=== PATIENT | male | born 1930 | race Caucasian/White ===

== ENCOUNTER 2019-06-09 11:31 | Inpatient (IN) | payer BC ==
[~2019-06-09] VITALS: Ht 180.3 cm; Wt 65.3 kg
--- NOTE | 2019-06-09 11:34 | NUR ---
PT BIBRA FROM HOME C/O GENERALIZE BODY PAIN, PT IS AAOX2, NOT IN RESPIRATORY DISTRESS, HOOKED TO PODIATRIST ASSISTANT, KEPT RESTED AND COMFORTABLE, WILL CONTINUE TO MONITOR.
--- NOTE | 2019-06-09 11:50 | NUR ---
SEEN AND EXAMINED BY .
--- NOTE | 2019-06-09 11:55 | NUR ---
IV LINE ESTABLISHED, BLOOD DRAWN AND SENT TO LAB.
[2019-06-09] MEDS ORDERED: IV NS 0.9% 1,000 ML BAG IV ONE (12:00)
[2019-06-09 12:04] LABS: BASOPHILS # (AUTO) 0.1 /CMM (0.0-0.2); BASOPHILS % (AUTO) 0.4 % (0.0-2.0); EOSINOPHILS % (AUTO) 0.1 % (0.0-6.0); HEMATOCRIT 37 % (39-51); HEMOGLOBIN 11.9 g/dL (13.5-17.5); LYMPHOCYTES # (AUTO) 1.7 /CMM (0.8-4.8); LYMPHOCYTES % (AUTO) 12.9 % (20.0-44.0); MEAN CORPUSCULAR HGB CONC 33 g/dl (31.0-36.0); MEAN CORPUSCULAR VOLUME 85 fL (80-96); MONOCYTES # (AUTO) 0.9 /CMM (0.1-1.30); MONOCYTES % (AUTO) 6.9 % (2.0-12.0); NEUTROPHILS # (AUTO) 10.8 /CMM (1.8-8.9); NEUTROPHILS % (AUTO) 79.7 % (43.0-81.0); PLATELET COUNT (AUTO) 470 /CMM (150-450); RED BLOOD CELL COUNT(AUTO) 4.29 MIL/uL (4.5-6.0); WHITE BLOOD COUNT (AUTO) 13.6 K/uL (4.3-11.0)
--- NOTE | 2019-06-09 12:15 | NUR ---
MASH PREPARATORY OPERATOR AT BEDSIDE FOR XRAY.
[2019-06-09 12:22] LABS: CALCIUM, SERUM 9.2 mg/dL (8.5-10.1); CARBON DIOXIDE 27 mmol/L (21-32); CHLORIDE 102 mmol/L (98-107); CREATININE 1.9 mg/dL (0.6-1.3); GLUCOSE 136 mg/dL (74-106); POTASSIUM 5.3 mmol/L (3.5-5.1); SODIUM SERUM 136 mmol/L (136-145); UREA NITROGEN, BLOOD 70 mg/dL (7-18)
[2019-06-09 12:26] LABS: ALANINE AMINOTRANSFERASE 49 U/L (12-78); ALKALINE PHOSPHATASE 108 U/L (46-116); ASPARTATE AMINOTRANSFERASE 64 U/L (15-37); BILIRUBIN,DIRECT 0.1 mg/dL (0.0-0.2); BILIRUBIN,TOTAL 0.3 mg/dL (0.2-1.0)
[2019-06-09 12:27] LABS: ALBUMIN 2.1 g/dL (3.4-5.0); TOTAL PROTEIN, SERUM 7.2 g/dL (6.4-8.2)
--- NOTE | 2019-06-09 12:32 | NUR ---
URINE SPECIMEN COLLECTED AND SENT TO LAB.
--- NOTE | 2019-06-09 12:39 | NUR ---
PAGED [facility], WAITING FOR PANEL CALL
[2019-06-09 12:45] LABS: APPEARANCE,URINE Clear (CLEAR); BILIRUBIN,URINE Negative (NEGATIVE); BLOOD, URINE Large Ery/uL (NEGATIVE); COLOR,URINE Yellow (YELLOW); KETONES,URINE Negative (NEGATIVE); LEUKOCYTE ESTERASE ,URINE Large (NEGATIVE); NITRITE, URINE Negative (NEGATIVE); PH,URINE 8.5 (5.0-8.0); PROTEIN,URINE >=300 mg/dl (NEGATIVE); UGLUCOSE Negative (NEGATIVE); UROBILINOGEN,URINE 0.2 EU/dL (0.2)
[2019-06-09 12:47] LABS: BACTERIA,URINE Few /HPF (None Seen); HYALINE CASTS, URINE Few /LPF (None Seen); SQUAMOUS EPITHELIAL CELL,UR Rare /HPF (None Seen)
[2019-06-09] MEDS ORDERED: MULT-1119 PO (12:50)
[2019-06-09] MEDS ORDERED: CALC-168 PO (12:50)
[2019-06-09] MEDS ORDERED: AMIN887L PO (12:50)
[2019-06-09] MEDS ORDERED: ASCO500C16 PO (12:50)
[2019-06-09] MEDS ORDERED: FERR325T23 PO (12:50)
[2019-06-09] MEDS ORDERED: METO50TA16 PO (12:50)
[2019-06-09] MEDS ORDERED: FINA5TAB3 PO (12:50)
[2019-06-09] MEDS ORDERED: TAMS-12 PO (12:50)
[2019-06-09] MEDS ORDERED: LACT1CAP71 PO (12:50)
[2019-06-09] MEDS ORDERED: NA P133E RC (12:50)
[2019-06-09] MEDS ORDERED: PRAV20TA4 PO (12:50)
[2019-06-09] MEDS ORDERED: BISA10SU61 RC (12:50)
[2019-06-09] MEDS ORDERED: MELO-107 PO (12:50)
[2019-06-09] MEDS ORDERED: MAGN400O6 PO (12:50)
[2019-06-09] MEDS ORDERED: AMLO5TAB4 PO (12:50)
[2019-06-09] MEDS ORDERED: CEFTRIAXONE 1GM BAG (ER ONLY) 50 ML IV ONE ×2 (13:00→13:02)
[2019-06-09 13:45] VITALS: BP 116/68
--- NOTE | 2019-06-09 13:45 | NUR ---
MS SERVICE UNIT OPERATOR OIL WELL NOTE: RECEIVED PATIENT FROM ED VIA GURNEY AND ACCOMPANIED BY STAFF. AWAKE, RESPONSIVE AND ORIENTED X1-2. NO COMPLAINTS OF PAIN. PATIENT PUT ON CONT. 02 VIA NC AND TOLERATING WELL. NO SOB AND NOT IN DISTRESS. IV SITE AT LAC G18. MULTIPLE SKIN ISSUES NOTED AND DOCUMENTED. PATIENT MADE COMFORTABLE. ADMISSION ASSESSMENTS WERE DONE, BELONGINGS FORM AND WOUND DOCUMENTATION COMPLETED. AWAITING ORDERS FROM HOSPITALIST.
[2019-06-09 14:30] VITALS: BP 116/68
[2019-06-09 16:00] VITALS: BP 124/72
[2019-06-09] MEDS: IV NS 0.9% 1,000 ML IV PRN (17:36)
--- NOTE | 2019-06-09 19:10 | NUR ---
MS RN NOTE: PATIENT IN BED, AWAKE AND RESPONSIVE. NO PAIN REPORTED AT THIS TIME. PT IN STABLE CONDITION. PT WITH IV INFUSING NS @75CC/HR A THIS TIME. PT NPO AT THIS TIME. SAFETY MEASURES IN PLACE WITH BED IN LOWEST LOCKED POSITION WITH SIDE RAILS UP X2. CALL LIGHT WITHIN REACH. WILL CONTINUE TO MONITOR.
--- NOTE | 2019-06-09 19:40 | NUR ---
MS RN CLOSING NOTE: PATIENT IN BED, AWAKE AND RESPONSIVE. NO PAIN REPORTED AND IN STABLE CONDITION. ENDORSED TO ONCOMING SHIFT FOR MAXIMILIANO, MADE AWARE OF ORDERS STILL PENDING FROM HOSPITALIST.
[2019-06-09 20:00] VITALS: BP 130/76
[2019-06-09] MEDS ORDERED: Z GUARD REMEDY 2 OZ OINT TP PRN (20:00)
[2019-06-09] MEDS ORDERED: ACETAMINOPHEN 325 MG TABLET PO PRN (20:00)
[2019-06-09] MEDS ORDERED: ONDANSETRON HCL/PF 4 MG/2 ML VIAL IVP PRN (20:00)
[2019-06-10 07:03] LABS: BASOPHILS % (AUTO) 0.3 % (0.0-2.0); EOSINOPHILS % (AUTO) 1.2 % (0.0-6.0); HEMATOCRIT 35 % (39-51); HEMOGLOBIN 11.4 g/dL (13.5-17.5); LYMPHOCYTES # (AUTO) 1.6 /CMM (0.8-4.8); LYMPHOCYTES % (AUTO) 16.8 % (20.0-44.0); MEAN CORPUSCULAR HGB CONC 33 g/dl (31.0-36.0); MEAN CORPUSCULAR VOLUME 85 fL (80-96); MONOCYTES # (AUTO) 0.7 /CMM (0.1-1.30); MONOCYTES % (AUTO) 7.9 % (2.0-12.0); NEUTROPHILS # (AUTO) 6.8 /CMM (1.8-8.9); NEUTROPHILS % (AUTO) 73.8 % (43.0-81.0); PLATELET COUNT (AUTO) 434 /CMM (150-450); RED BLOOD CELL COUNT(AUTO) 4.05 MIL/uL (4.5-6.0); WHITE BLOOD COUNT (AUTO) 9.2 K/uL (4.3-11.0)
[2019-06-10 07:28] LABS: CHOLESTEROL 129 mg/dL (<200); HDL CHOLESTEROL 23 mg/dL (40-60); LDL 87 mg/dL (0-99); TRIGLYCERIDES 88 mg/dL (30-150)
[2019-06-10] MEDS: IV NS 0.9% 1,000 ML IV PRN (07:30)
[2019-06-10 07:38] LABS: CALCIUM, SERUM 8.3 mg/dL (8.5-10.1); CARBON DIOXIDE 25 mmol/L (21-32); CHLORIDE 108 mmol/L (98-107); CREATININE 1.5 mg/dL (0.6-1.3); GLUCOSE 91 mg/dL (74-106); MAGNESIUM 2.1 mg/dL (1.8-2.4); PHOSPHORUS 3.4 mg/dL (2.5-4.9); POTASSIUM 4.1 mmol/L (3.5-5.1); SODIUM SERUM 142 mmol/L (136-145); UREA NITROGEN, BLOOD 57 mg/dL (7-18)
[2019-06-10 08:00] VITALS: BP 128/72
--- NOTE | 2019-06-10 08:07 | NUR ---
MS RN NOTE: PATIENT IN BED, RESTING AND RESPONSIVE. NO PAIN REPORTED AT THIS TIME. PT IN STABLE CONDITION. PT WITH IV INFUSING NS @75CC/HR A THIS TIME. PT NPO AT THIS TIME. PT KEPT CLEAN, DRY, AND COMFORTABLE. SAFETY MEASURES IN PLACE WITH BED IN LOWEST LOCKED POSITION WITH SIDE RAILS UP X2. CALL LIGHT WITHIN REACH. WILL ENDORSE TO ONCOMING NURSE FOR MAXIMILIANO.
--- NOTE | 2019-06-10 10:30 | NUR ---
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 PT IS INCONTINENT. PT IS SOMETIMES UNCOOPERATIVE. RECOMMENDATIONS MADE FOR SKIN PROTECTION. DISCUSSED WITH NURSING STAFF. PT ON ALAN ISOFLEX LOW AIRLOSS BED. DR MCDANIELS NOTIFIED OF SURGICAL CONSULT REQUEST. DEFER TO SURGICAL TEAM FOR WOUND TREATMENT PLAN. WILL SEE PRN. BROOKS IN AGREEMENT WITH PLAN OF CARE. CURRENT VAL SCORE IS 13. Addendum: 06/10/19 at 1032 by EFRAIN CURRY WNDNU Amended: Links added.
--- NOTE | 2019-06-10 11:19 | NUR ---
alert to self only, seen by speech today, patient is going to have Pureed with Honey thick diet, starting at lunch. seen by BIOSOLIDS MANAGEMENT TECHNICIAN, agreed with the plan, and continues to get ivf , same rate
[2019-06-10] MEDS: CEFTRIAXONE 1 G in IV D5W 50 ML IV SCH (12:20)
--- NOTE | 2019-06-10 16:05 | NUR ---
feeder for lunch , pureed with honey thick as advised by ST, appetite about 25%, said " i did not like food like that, just like a baby" seen by surgery, consent unable to sign by patient, secondary to his mental status at this time. On chart, no next -of-kin noted, would have to wait for son to come in to visit before we can address this
--- NOTE | 2019-06-10 19:00 | NUR ---
MS RN OPENING NOTES: RECEIVED PATIENT IN BED, JUST CAME FROM CAT SCAN, AWAKE, A/O X2. NO RESPIRATORY DISTRESS. NOT IN PAIN. CALL LIGHT WITHIN REACH. BED ALARM ON. HOB AT 30 DEGREES AT ALL TIMES. ASPIRATION PRECAUTION, PUREED DIET AND THICK LIQUIDS, METAL MINER MADE AWARE. BED IN LOWEST AND LOCKED POSITION. ON O2 AT 2L/MIN.
[2019-06-10 20:00] VITALS: BP 135/80
[2019-06-10] MEDS: HYDROGEL DRESSING 90 GM TUBE TP SCH (20:48)
--- NOTE | 2019-06-10 23:45 | NUR ---
WOUND TREATMENTS DONE. ON SACRAL WOUNDS- CLEANSED WITH NS AND PAT DRY,APPLIED THE HYDROGEL TO OPEN AREAS AND COVER WITH MEPILEX DRESSING. SCARRINGS ON THE BUTTOCKS COVERED WITH MEPILEX DRESSING.OFF LOADING AND TURNED. ON THE RIGHT UPPER BACK OPEN LESION-CLEANSED WITH NS AND PAT DRY AND APPLIED THE XEROFORM AND COVERED WITH MEPILEX DRESSING.
--- NOTE | 2019-06-11 06:05 | NUR ---
MS RN CLOSING NOTES: PATIENT IS RESTING IN BED. CONFUSED. BED ALARM ON. NO ACUTE EVENTS OVERNIGHT. NOT IN RESPIRATORY DISTRESS. NO COMPLAIN OF PAIN.CONSENTS FOR BIOPSY OF THE LEFT HEAD LESION AND THE RIGHT UPPER BACK LESION ARE NOT SIGN YET,NO FAMILY MEMBERS CAME LAST NIGHT
--- NOTE | 2019-06-11 07:50 | NUR ---
RN MS NOTES PT IN BED, AWAKE, ALERT AND ORIENTED, NO COMPLAINT OF PAIN, RESPIRATIONS NORMAL, CALL LIGHT WITHIN REACH, STATED THAT HE SLEPT WELL LAST NIGHT, IV FLUIDS INFUSING WELL, KEPT WARM AND COMFORTABLE IN BED.
[2019-06-11 08:00] VITALS: BP 134/79
[2019-06-11 08:43] LABS: BASOPHILS % (AUTO) 0.5 % (0.0-2.0); EOSINOPHILS % (AUTO) 1.1 % (0.0-6.0); HEMATOCRIT 37 % (39-51); HEMOGLOBIN 11.9 g/dL (13.5-17.5); LYMPHOCYTES # (AUTO) 1.9 /CMM (0.8-4.8); LYMPHOCYTES % (AUTO) 23.8 % (20.0-44.0); MEAN CORPUSCULAR HGB CONC 32 g/dl (31.0-36.0); MEAN CORPUSCULAR VOLUME 87 fL (80-96); MONOCYTES # (AUTO) 0.7 /CMM (0.1-1.30); MONOCYTES % (AUTO) 8.9 % (2.0-12.0); NEUTROPHILS # (AUTO) 5.2 /CMM (1.8-8.9); NEUTROPHILS % (AUTO) 65.7 % (43.0-81.0); PLATELET COUNT (AUTO) 515 /CMM (150-450); RED BLOOD CELL COUNT(AUTO) 4.26 MIL/uL (4.5-6.0); WHITE BLOOD COUNT (AUTO) 7.9 K/uL (4.3-11.0)
[2019-06-11] MEDS: HYDROGEL DRESSING 90 GM TUBE TP SCH (08:49)
[2019-06-11 08:58] LABS: CALCIUM, SERUM 8.8 mg/dL (8.5-10.1); CARBON DIOXIDE 24 mmol/L (21-32); CHLORIDE 111 mmol/L (98-107); CREATININE 1.4 mg/dL (0.6-1.3); GLUCOSE 93 mg/dL (74-106); MAGNESIUM 2.3 mg/dL (1.8-2.4); PHOSPHORUS 3.6 mg/dL (2.5-4.9); POTASSIUM 4.6 mmol/L (3.5-5.1); SODIUM SERUM 145 mmol/L (136-145); UREA NITROGEN, BLOOD 46 mg/dL (7-18)
[2019-06-11 09:13] LABS: FREE PSA 0.48 ng/mL (0.00-45); PROSTATE SPECIFIC ANTIGEN SCR 7.71 ng/mL (0.00-4.00)
[2019-06-11] MEDS: CEFTRIAXONE 1 G in IV D5W 50 ML IV SCH (12:26)
[2019-06-11] MEDS: MUPIROCIN OINT 2% 22 GM TUBE SCH ×2 (12:26→21:26)
[2019-06-11] MEDS: IV NS 0.9% 1,000 ML IV PRN (12:26)
--- NOTE | 2019-06-11 12:48 | NUR ---
RN MS NOTES PT SEEN BY DR. ROCHA, PT ON CONTACT ISOLATION FOR MRSA NARES, INFORMED, BACTROBAN OINTMENT ORDERED, PT SEEN BY PHYSICAL THERAPIST, IV FLUIDS INFUSING WELL, ASSISTED WITH NEEDS.
[2019-06-11 12:49] LABS: THYROID STIMULATING HORMONE 5.053 uIU/mL (0.358-3.74)
--- NOTE | 2019-06-11 13:26 | NUR ---
RN MS NOTES CALLED [facility] ([place]) [phone] TO OBTAIN MEDICAL RECORDS OF PT PER MD ORDER, NO ANSWER.
--- NOTE | 2019-06-11 15:08 | NUR ---
RN MS NOTES CALLED AND LEFT MESSAGE TO [facility] [phone], AWAITING RETURN CALL.
[2019-06-11 16:00] VITALS: BP 128/73
--- NOTE | 2019-06-11 18:44 | NUR ---
RN MS NOTES PT IN BED, AWAKE, ALERT AND VERBALLY RESPONSIVE, WITH PERIODS OF CONFUSION, NO SIGN OF PAIN OR DISTRESS, IV FLUIDS INFUSING WELL, CALL LIGHT WITHIN REACH, ASSISTED WITH MEALS, PM CARE PROVIDED, ALL NEEDS ATTENDED.
--- NOTE | 2019-06-11 19:20 | NUR ---
RN NOTES RECEIVED PATIENT AWAKE ALERT ORIENTED X1, SAFETY MEASURES IN PLACED, ASPIRATION PRECAUTION EMPHASIZED, CALL LIGHT WITHIN EASY REACH, BED IN LOW LOCKED POSITION, REPOSITIONED FOR COMFORT, IV ACCESS INTACT AND PATENT, IVF INFUSING WELL ON HIS LEFT AC G#18. ALL NEEDS ANTICIPATED, WILL MONITOR ACCORDINGLY.
[2019-06-11 20:00] VITALS: BP 113/67
[2019-06-11 20:14] VITALS: BP 113/67
[2019-06-12] MEDS: IV NS 0.9% 1,000 ML IV PRN (01:28)
--- NOTE | 2019-06-12 06:18 | NUR ---
RN NOTES ALL NEEDS ATTENDED AND MET, ABLE TO REST AND SLEPT AT INTERVALS, PATIENT AWAKE ALERT ORIENTED X1, AT THIS TIME, SAFETY MEASURES IN PLACED, ASPIRATION PRECAUTION EMPHASIZED, CALL LIGHT WITHIN EASY REACH, BED IN LOW LOCKED POSITION, REPOSITIONED FOR COMFORT, IV ACCESS INTACT AND PATENT, IVF INFUSING WELL ON HIS LEFT AC G#18. ALL NEEDS ANTICIPATED, WILL ENDORSE TO AM NURSE FOR CONTINUITY OF CARE.
[2019-06-12 08:00] VITALS: BP 158/80
[2019-06-12] MEDS: MUPIROCIN OINT 2% 22 GM TUBE SCH ×2 (08:48→21:00)
[2019-06-12] MEDS: HYDROGEL DRESSING 90 GM TUBE TP SCH (08:48)
[2019-06-12 12:00] VITALS: BP_SYST 130; BP_DIAS 74; BP_DIAS 77
[2019-06-12 12:06] LABS: IMMUNOGLOBULIN A, SERUM 583 mg/dL (61-437); IMMUNOGLOBULIN G, SERUM 1268 mg/dL (700-1600); IMMUNOGLOBULIN M, SERUM 79 mg/dL (15-143)
[2019-06-12 12:09] LABS: BASOPHILS % (AUTO) 0.2 % (0.0-2.0); EOSINOPHILS % (AUTO) 1.3 % (0.0-6.0); HEMATOCRIT 35 % (39-51); HEMOGLOBIN 11.1 g/dL (13.5-17.5); LYMPHOCYTES # (AUTO) 1.6 /CMM (0.8-4.8); LYMPHOCYTES % (AUTO) 23.9 % (20.0-44.0); MEAN CORPUSCULAR HGB CONC 32 g/dl (31.0-36.0); MEAN CORPUSCULAR VOLUME 86 fL (80-96); MONOCYTES # (AUTO) 0.5 /CMM (0.1-1.30); MONOCYTES % (AUTO) 8.1 % (2.0-12.0); NEUTROPHILS # (AUTO) 4.5 /CMM (1.8-8.9); NEUTROPHILS % (AUTO) 66.5 % (43.0-81.0); PLATELET COUNT (AUTO) 434 /CMM (150-450); RED BLOOD CELL COUNT(AUTO) 4.01 MIL/uL (4.5-6.0); WHITE BLOOD COUNT (AUTO) 6.8 K/uL (4.3-11.0)
[2019-06-12 12:31] LABS: CALCIUM, SERUM 8.3 mg/dL (8.5-10.1); CREATININE 1.3 mg/dL (0.6-1.3); POTASSIUM 3.9 mmol/L (3.5-5.1)
[2019-06-12 16:00] VITALS: BP 142/79
[2019-06-12] MEDS: CEFTRIAXONE 1 G in IV D5W 50 ML IV SCH (16:25)
--- NOTE | 2019-06-12 17:25 | NUR ---
RN NOTE RECEIVED PT IN BED IN SEMI WHITAKER'S POSITION. PATIENT AWAKE ALERT ORIENTED X1 AT THIS TIME, REORIENTED PT. SAFETY MEASURES IN PLACED, ASPIRATION PRECAUTION IN PLACE. CALL LIGHT WITHIN EASY REACH, BED IN LOW LOCKED POSITION, REPOSITIONED PT FOR COMFORT, IV ACCESS INTACT AND PATENT WITH IVF INFUSING ON HIS LEFT AC G#18. WILL MONITOR.
[2019-06-12 20:00] VITALS: BP 156/90
--- NOTE | 2019-06-12 22:32 | NUR ---
RN NOTE NOTED WITH SODIUM LEVEL OF 148 WHILE ON 0.9NS IVF @75ML/HOUR. PAGED WITH NO NEW ORDERS.
[2019-06-13] VITALS: BP 139/88
[2019-06-13] MEDS: HYDROCODONE/APAP 5/325MG 1 EACH TABLET PO PRN ×2 (03:45→22:22)
[2019-06-13] MEDS: IV NS 0.9% 1,000 ML IV PRN (05:21)
--- NOTE | 2019-06-13 07:34 | NUR ---
RN NOTE PT IN BED AWAKE IN SEMI WHITAKER'S POSITION. ORIENTED X 1. REORIENTED PT NEEDED. ON 2L OF O2 VIA NC. NO SOB NOTED. NO INDICATIONS OF PAIN OR DISCOMFORT. WITH IVF 0.9%NS RUNNING AT 75ML/HOUR RUNNING WELL WITHOUT COMPLICATIONS. BED IN LOW POSITION. BED ALARM ON. CALL LIGHT WITHIN REACH,. ENDORSED TO MORNING SHIFT.
[2019-06-13 08:00] VITALS: BP 120/62
[2019-06-13] MEDS: MUPIROCIN OINT 2% 22 GM TUBE SCH ×2 (08:47→21:27)
[2019-06-13] MEDS: HYDROGEL DRESSING 90 GM TUBE TP SCH (08:47)
[2019-06-13] MEDS: ENSURE ENLIVE 237 ML LIQUID (VANILLA) PO SCH ×3 (09:34→16:50)
[2019-06-13 11:13] LABS: *SPE A/G RATIO 0.5 (0.7-1.7); *SPE ALPHA-1-GLOBULIN 0.3 g/dL (0.0-0.4); *SPE BETA GLOBULIN 1.1 g/dL (0.7-1.3); *SPE GLOBULIN, TOTAL 3.8 g/dL (2.2-3.9); *SPE M-SPIKE Not Observed g/dL (Not Observed); *SPEGAMMA GLOBULIN 1.3 g/dL (0.4-1.8)
[2019-06-13] MEDS: CEFTRIAXONE 1 G in IV D5W 50 ML IV SCH (12:56)
[2019-06-13] MEDS: IV D5W 1,000 ML IV PRN (15:45)
[2019-06-13 16:00] VITALS: BP 120/57
--- NOTE | 2019-06-13 18:48 | NUR ---
MS/RN CLOSING NOTES PATIENT CONTINUES TO REMAIN IN STABLE CONDITION THROUGHOUT THE SHIFT. PROVIDED COMFORT AND SAFETY. IV ACCESS IN LAC INTACT AND PATENT. FLUSHING WELL. NO S/S OF INFECTION OR INFILTRATION. PATIENT ABLE TO TOLERATE MEALS AND MEDS WELL. ALL NEEDS ANTICIPATED. CALL LIGHT WITHIN REACHED. BED LOCKED AND IN LOWEST POSITION. WILL CONTINUE TO MONITOR CLOSELY. ENDORSED TO PM NURSE FOR MAXIMILIANO.
[2019-06-13 20:00] VITALS: BP 100/53
[2019-06-14] MEDS: HYDROCODONE/APAP 5/325MG 1 EACH TABLET PO PRN (03:40)
[2019-06-14 04:00] VITALS: BP 120/61
--- NOTE | 2019-06-14 07:10 | NUR ---
MS RN OPENING NOTE RECEIVED REPORT FROM PM NURSE.PATIENT IN BED.AWAKE.ON O2 2L VIA NASAL CANULA.TOLERATING WELL.NO SOB NO DISTRESS NOTED.IV ON LAC WITH D5W@50ML/HR.BED IS LOW AND IN LOCKED POSITION.HOB ELEVATED.CALL LIGHT IN REACH.BED ALARM ON.SRX3.WILL CONTINUE TO MONITOR.
[2019-06-14 08:00] VITALS: BP 94/50
[2019-06-14] MEDS: HYDROGEL DRESSING 90 GM TUBE TP SCH (08:45)
[2019-06-14] MEDS: MUPIROCIN OINT 2% 22 GM TUBE SCH ×2 (08:46→21:00)
[2019-06-14] MEDS: ENSURE ENLIVE 237 ML LIQUID (VANILLA) PO SCH ×3 (09:27→17:36)
[2019-06-14] MEDS ORDERED: CEFT1VIA15 IV (09:58)
--- NOTE | 2019-06-14 10:30 | NUR ---
MS RN NOTE' SEEN BY .UPDATED ABOUT PATIENT CONDITION.GOT NEW ORDER FOR DISCHARGE.
[2019-06-14 12:00] VITALS: BP 94/58
[2019-06-14] MEDS: CEFTRIAXONE 1 G in IV D5W 50 ML IV SCH (13:23)
--- NOTE | 2019-06-14 14:00 | NUR ---
RN NOTE SEEN BY JOHN TOWNSEND FROM WOUND CARE.S/P BIOPSY OF LESION ON HEAD AND UPPER BACK.MADE AWARE ABOUT LESIONS ON BACK NOT GETTING BETTER.GOT NEW ORDERS.WILL CONTINUE TO MONITOR.
--- NOTE | 2019-06-14 15:00 | NUR ---
RN NOTE CALL MADE TO [facility] TO GIVE REPORT.BUT THEY WAITING FOR ADMISSION PROCESS.CHILD DEVELOPMENT INSTRUCTOR VANDANA MADE AWARE.AWAITING FOR INSURANCE APPROVAL AND WILL LET US KNOW ABOUT FURTHER PLAN.
[2019-06-14] MEDS: IV D5W 1,000 ML IV PRN (15:40)
[2019-06-14 16:00] VITALS: BP 94/58
[2019-06-14] MEDS: TRIAMCINOLONE ACETONIDE 0.5% 15 GM TUBE TP SCH ×2 (17:08→17:12)
--- NOTE | 2019-06-14 19:22 | NUR ---
MS RN CLOSING NOTE PATIENT IN BED.AWAKE.ON O2 2L VIA NASAL CANULA.TOLERATING WELL.NO SOB NO DISTRESS NOTED.IV ON LFA WITH D5W@50ML/HR.BED IS LOW AND IN LOCKED POSITION.HOB ELEVATED.CALL LIGHT IN REACH.BED ALARM ON.SRX3.PENDING DISCHARGE.LEFT MESSAGE TO SON [facility] ABOUT DISCHARGE.WAITING TO CALL BACK .ENDORSED TO PM NURSE FOR MAXIMILIANO.
--- NOTE | 2019-06-14 19:25 | NUR ---
RN NOTE RECEIVED PT IN BED ALERT AND ORIENTED X 1. REORIENTED PRN . PT ON 2L VIA NC WITHOUT INDICATIONS OF RESPIRATORY DISTRESS. CURRENTLY WITH IF ON LFA WITH D5W RUNNING AT 50ML/HOUR. BED ALARM ON. CALL LIGHT WITHIN REACH. WILL MONITOR. PT IS PENDING DISCHARGE.
[2019-06-14 20:00] VITALS: BP 98/60
[2019-06-15] VITALS: BP 108/63
--- NOTE | 2019-06-15 00:19 | NUR ---
RN NOTE NOTED THAT IV ON LEFT FOREARM TO BE PULLED OUT. NO BLEEDING NOTED AT SITE. PRESSURE APPLIED AND TAPED WITH GAUZE. INSERTED NEW IV ON RIGHT HAND G 22. PT TOLERATED WELL. RESUMED IV FLUIDS.
--- NOTE | 2019-06-15 02:27 | NUR ---
RN NOTE NOTED IV SITE ON RIGHT HAND TO BE DISLODGED. NO BLEEDING AT SITE. PRESSURE APPLIED AND TAPED WITH GAUZE. NEW IV INSERTED ON RIGHT FOREARM G 20. PT TOLERATED WELL. IV FLUIDS RESUMED.
[2019-06-15 04:00] VITALS: BP 98/59
[2019-06-15 06:28] LABS: BASOPHILS % (AUTO) 0.2 % (0.0-2.0); EOSINOPHILS % (AUTO) 1.7 % (0.0-6.0); HEMATOCRIT 30 % (39-51); HEMOGLOBIN 10.1 g/dL (13.5-17.5); LYMPHOCYTES # (AUTO) 1.9 /CMM (0.8-4.8); LYMPHOCYTES % (AUTO) 22.6 % (20.0-44.0); MEAN CORPUSCULAR HGB CONC 33 g/dl (31.0-36.0); MEAN CORPUSCULAR VOLUME 84 fL (80-96); MONOCYTES # (AUTO) 0.5 /CMM (0.1-1.30); MONOCYTES % (AUTO) 5.7 % (2.0-12.0); NEUTROPHILS % (AUTO) 69.8 % (43.0-81.0); PLATELET COUNT (AUTO) 366 /CMM (150-450); RED BLOOD CELL COUNT(AUTO) 3.57 MIL/uL (4.5-6.0); WHITE BLOOD COUNT (AUTO) 8.5 K/uL (4.3-11.0)
[2019-06-15 06:45] LABS: CALCIUM, SERUM 7.6 mg/dL (8.5-10.1); CREATININE 1.2 mg/dL (0.6-1.3); MAGNESIUM 1.8 mg/dL (1.8-2.4); PHOSPHORUS 2.5 mg/dL (2.5-4.9); POTASSIUM 3.4 mmol/L (3.5-5.1)
--- NOTE | 2019-06-15 07:00 | NUR ---
LOMBARDI DEVELOPER OPENING NOTES PATIENT PATIENT IS A/O X1 . PATENT STATED WHERE IS THE DOOR. I WOULD DIRECT HIM THE LOCATION OF THE DOOR. PATIENT WOULD RESPONSE WITH THERE INST A DOOR. PATIENT IS AWAKE AND LOOKING AT THE WALL. BEFORE WALKING IN PATIENT WAS SLEEPING WITH EYES OPEN. BUT WAS EASILY AROUSED PATIENT IS ON D5W @ 50 ML/HR . PATIENT HAS RFA #20. NO SOB, NO ACUTE RESPIRATORY DISTRESS . BED LOCKED AND LOWEST POSITION ALL SAFETY MEASURE IMPLEMENTED PER HOSPITAL PROTOCOL
--- NOTE | 2019-06-15 07:21 | NUR ---
RN CLOSING NOTE PT IS IN BED ALERT AND ORIENTED X 1. PT IN SEMI WHITAKER'S POSITION. NO INDICATIONS OF DISTRESS OR DISCOMFORT. PT CURRENTLY ON 2L O2 VIA NC. WITH IVF DW5 @50ML/HOUR. PT PENDING DISCHARGE TO SNF TODAY. BED IN LOW POSITION. BED ALARM ON. CALL LIGHT WITHIN REACH. ENDORSED TO MORNING SHIFT.
[2019-06-15 08:00] VITALS: BP 105/58
[2019-06-15] MEDS: ENSURE ENLIVE 237 ML LIQUID (VANILLA) PO SCH ×3 (08:49→17:27)
[2019-06-15] MEDS: TRIAMCINOLONE ACETONIDE 0.5% 15 GM TUBE TP SCH ×2 (08:49→17:28)
[2019-06-15] MEDS: MUPIROCIN OINT 2% 22 GM TUBE SCH ×2 (08:49→20:39)
[2019-06-15] MEDS: HYDROGEL DRESSING 90 GM TUBE TP SCH (08:50)
[2019-06-15] MEDS ORDERED: POTASSIUM CHLORIDE 20 MEQ POWDER PACKET PO SCH (10:00)
[2019-06-15] MEDS: CEFTRIAXONE 1 G in IV D5W 50 ML IV SCH (12:00)
[2019-06-15 16:00] VITALS: BP 122/66
--- NOTE | 2019-06-15 19:06 | NUR ---
RN MS NOTES CLOSING PATIENT A/OX1 PATIENT IS CONFUSED BUT FOLLOWS COMMANDS. PATIENT IS ON BED REST. PATIENT HAS D5W 50 ML/HR RFA 20# intact and PATENT. PATIENT SHOWS NO SIGNS OF SOB. NO PAIN. EVEN AND UNLABORED BREATHING . ALL NEEDS MET. BED LOCKED AND LOWEST POSITION CALL LIGHT WITH IN REACH PATIENT TURN Q2 H . ALL SAFETY MEASURE IMPLEMENTED PER HOSPITAL POLICY
--- NOTE | 2019-06-15 19:25 | NUR ---
MS/RN NOTES PATIENT IN BED, AWAKE, ALERT AND ORIENTED X1-2, FOLLOW COMMANDS, WITH PERIODS OF CONFUSION, DISORIENTATION. NO S/S OF ACUTE DISTRESS NOTED, BREATHING EVEN AND UNLABORED. NO SOB NOTED. ON O2 2LPM VIA NASAL CANULA. SATURATION 96%. HOB ELEVATED. DENIES ANY PAIN AT THIS TIME. IV SITE INTACT, RUNNING WITH FLUIDS ORDERED. SAFETY MAINTAINED, BED AT THE LOWEST LOCKED POSITION. CALL LIGHT WITHIN REACH. WILL CONTINUE TO MONITOR PER PLAN OF CARE.
[2019-06-15 20:00] VITALS: BP 118/69
[2019-06-15] MEDS: IV D5W 1,000 ML IV PRN (20:43)
[2019-06-16] VITALS: BP 116/84
[2019-06-16 04:00] VITALS: BP 112/69
[2019-06-16 06:57] LABS: BASOPHILS % (AUTO) 0.3 % (0.0-2.0); EOSINOPHILS % (AUTO) 2.5 % (0.0-6.0); HEMATOCRIT 32 % (39-51); HEMOGLOBIN 10.6 g/dL (13.5-17.5); LYMPHOCYTES # (AUTO) 1.9 /CMM (0.8-4.8); MEAN CORPUSCULAR HGB CONC 33 g/dl (31.0-36.0); MEAN CORPUSCULAR VOLUME 85 fL (80-96); MONOCYTES # (AUTO) 0.5 /CMM (0.1-1.30); NEUTROPHILS # (AUTO) 4.7 /CMM (1.8-8.9); NEUTROPHILS % (AUTO) 64.2 % (43.0-81.0); PLATELET COUNT (AUTO) 378 /CMM (150-450); RED BLOOD CELL COUNT(AUTO) 3.79 MIL/uL (4.5-6.0); WHITE BLOOD COUNT (AUTO) 7.3 K/uL (4.3-11.0)
--- NOTE | 2019-06-16 07:09 | NUR ---
MS/RN EXIT NOTES PATIENT REMAINED IN BED, AWAKE, ALERT AND ORIENTED X1-2. NO S/S OF ACUTE DISTRESS NOTED, BREATHING EVEN AND UNLABORED. NO SOB NOTED. ON O2 2LPM VIA NASAL CANULA. SATURATION 98%HOB ELEVATED. DENIES ANY PAIN AT THIS TIME. IV SITE INTACT, RUNNING WITH FLUIDS ORDERED. SAFETY MAINTAINED, BED AT THE LOWEST LOCKED POSITION. CALL LIGHT WITHIN REACH. NEEDS ATTENDANT. ENDORSE TO AM SHIFT NURSE FOR MAXIMILIANO.
--- NOTE | 2019-06-16 07:21 | NUR ---
MS RN OPENING NOTE RECEIVED REPORT FROM [facility] SHIFT NURSE. PT AWAKE IN BED, ALERT AND ORIENTED X 1, ON 02 VIA NC 2L/MIN, SATURATING WELL, RESPIRATIONS EVEN AND UNLABORED, NO SIGNS OF RESPIRATORY DISTRESS NOTED. IIV SITE ON RIGHT FOREARM G20 INTACT, PATENT, D5W INFUSING AT 50CC/HR, NO SIGNS OF INFILTRATION NOTED. BED IN LOW POSITION, LOCKED, CALL LIGHT WITHIN REACH, BED ALARM ON.
[2019-06-16 07:40] LABS: CALCIUM, SERUM 7.7 mg/dL (8.5-10.1); CREATININE 1.3 mg/dL (0.6-1.3); MAGNESIUM 1.8 mg/dL (1.8-2.4); POTASSIUM 3.4 mmol/L (3.5-5.1)
[2019-06-16 08:00] VITALS: BP 98/64
[2019-06-16] MEDS: HYDROGEL DRESSING 90 GM TUBE TP SCH (08:37)
[2019-06-16] MEDS: MUPIROCIN OINT 2% 22 GM TUBE SCH ×2 (08:37→21:17)
[2019-06-16] MEDS: TRIAMCINOLONE ACETONIDE 0.5% 15 GM TUBE TP SCH ×2 (08:38→17:08)
[2019-06-16] MEDS: ENSURE ENLIVE 237 ML LIQUID (VANILLA) PO SCH ×3 (08:38→17:00)
[2019-06-16] MEDS ORDERED: POTASSIUM CHLORIDE 20 MEQ POWDER PACKET PO SCH (09:30)
[2019-06-16] MEDS ORDERED: POTASSIUM CHLORIDE 20 MEQ TAB.PRT.SR PO ONE (11:00)
[2019-06-16] MEDS ORDERED: POTASSIUM CHLORIDE 20 MEQ POWDER PACKET PO ONE (11:30)
[2019-06-16] MEDS: CEFTRIAXONE 1 G in IV D5W 50 ML IV SCH (12:10)
--- NOTE | 2019-06-16 13:30 | NUR ---
SPOKE WITH DR. THOMAS WHO STATED UA AND OCCULT STOOL TEST MAY BE CANCELED, NO LONGER NEEDED.
[2019-06-16 16:00] VITALS: BP 103/64
[2019-06-16] MEDS: IV D5W 1,000 ML IV PRN (17:00)
--- NOTE | 2019-06-16 18:48 | NUR ---
RN MS CLOSING NOTES PT AWAKE IN BED, ALERT AND ORIENTED X 1, ON 02 VIA NC 2L/MIN, SATURATING WELL, RESPIRATIONS EVEN AND UNLABORED, NO SIGNS OF RESPIRATORY DISTRESS NOTED. IV SITE ON RIGHT HAND G22 INTACT, PATENT, D5W INFUSING AT 50CC/HR, NO SIGNS OF INFILTRATION NOTED. BED IN LOW POSITION, LOCKED, CALL LIGHT WITHIN REACH, BED ALARM. PROVIDED SAFETY AND COMFORT THROUGHOUT SHIFT. ALL DUE MEDS GIVEN. WILL ENDORSE TO NOC SHIFT.
--- NOTE | 2019-06-16 19:25 | NUR ---
MS/RN NOTES PATIENT IN BED, AWAKE, ALERT AND ORIENTED X1, WITH PERIODS OF CONFUSION, DISORIENTATION. NO S/S OF ACUTE DISTRESS NOTED, BREATHING EVEN AND UNLABORED. NO SOB NOTED. ON O2 2LPM VIA NASAL CANULA. SATURATION 96%. HOB ELEVATED. DENIES ANY PAIN AT THIS TIME. IV SITE INTACT, RUNNING WITH FLUIDS ORDERED. SAFETY MAINTAINED, BED AT THE LOWEST LOCKED POSITION. CALL LIGHT WITHIN REACH. WILL CONTINUE TO MONITOR PER PLAN OF CARE.
[2019-06-16 20:00] VITALS: BP 109/68
[2019-06-16 21:12] VITALS: BP 109/68
[2019-06-17] VITALS: BP 109/68
[2019-06-17] MEDS: ZOLPIDEM TARTRATE 5 MG TABLET PO PRN (00:29)
[2019-06-17 04:00] VITALS: BP 124/73
[2019-06-17 06:54] LABS: BASOPHILS # (AUTO) 0.1 /CMM (0.0-0.2); BASOPHILS % (AUTO) 0.8 % (0.0-2.0); EOSINOPHILS % (AUTO) 2.9 % (0.0-6.0); HEMATOCRIT 36 % (39-51); HEMOGLOBIN 11.7 g/dL (13.5-17.5); LYMPHOCYTES # (AUTO) 2.2 /CMM (0.8-4.8); LYMPHOCYTES % (AUTO) 26.6 % (20.0-44.0); MEAN CORPUSCULAR HGB CONC 33 g/dl (31.0-36.0); MEAN CORPUSCULAR VOLUME 85 fL (80-96); MONOCYTES # (AUTO) 0.6 /CMM (0.1-1.30); MONOCYTES % (AUTO) 7.6 % (2.0-12.0); NEUTROPHILS # (AUTO) 5.1 /CMM (1.8-8.9); NEUTROPHILS % (AUTO) 62.1 % (43.0-81.0); PLATELET COUNT (AUTO) 421 /CMM (150-450); RED BLOOD CELL COUNT(AUTO) 4.22 MIL/uL (4.5-6.0); WHITE BLOOD COUNT (AUTO) 8.2 K/uL (4.3-11.0)
--- NOTE | 2019-06-17 07:08 | NUR ---
MS/RN EXIT NOTES PATIENT REMAINED IN BED, AWAKE, ALERT AND ORIENTED X1-2. NO S/S OF ACUTE DISTRESS NOTED, BREATHING EVEN AND UNLABORED. NO SOB NOTED. ON O2 2LPM VIA NASAL CANULA. SATURATION 98%HOB ELEVATED. DENIES ANY PAIN AT THIS TIME. IV SITE WITH NO S/S OF INFECTION/INFILTRATION.. SAFETY MAINTAINED, BED AT THE LOWEST LOCKED POSITION. CALL LIGHT WITHIN REACH. NEEDS ATTENDANT. ENDORSE TO AM SHIFT NURSE FOR MAXIMILIANO.
--- NOTE | 2019-06-17 07:15 | NUR ---
MS RN OPENING NOTE RECEIVED REPORT FROM [facility] SHIFT NURSE. PT AWAKE IN BED, ALERT AND ORIENTED X 1, ON 02 VIA NC 2L/MIN, SATURATING WELL, RESPIRATIONS EVEN AND UNLABORED, NO SIGNS OF RESPIRATORY DISTRESS NOTED. IV SITE ON RIGHT FOREARM G20 INTACT, PATENT, HEP LOCK IN PLACE. BED IN LOW POSITION, LOCKED, CALL LIGHT WITHIN REACH, BED ALARM ON.
[2019-06-17 08:00] VITALS: BP 105/57
[2019-06-17 08:42] LABS: ALANINE AMINOTRANSFERASE 29 U/L (12-78); ALBUMIN 1.9 g/dL (3.4-5.0); ALKALINE PHOSPHATASE 90 U/L (46-116); ASPARTATE AMINOTRANSFERASE 36 U/L (15-37); BILIRUBIN,TOTAL 0.2 mg/dL (0.2-1.0); CALCIUM, SERUM 8.2 mg/dL (8.5-10.1); CARBON DIOXIDE 24 mmol/L (21-32); CHLORIDE 106 mmol/L (98-107); CREATININE 1.4 mg/dL (0.6-1.3); GLUCOSE 99 mg/dL (74-106); MAGNESIUM 1.9 mg/dL (1.8-2.4); PHOSPHORUS 3.2 mg/dL (2.5-4.9); POTASSIUM 3.8 mmol/L (3.5-5.1); SODIUM SERUM 140 mmol/L (136-145); TOTAL PROTEIN, SERUM 6.3 g/dL (6.4-8.2); UREA NITROGEN, BLOOD 30 mg/dL (7-18)
[2019-06-17] MEDS: ENSURE ENLIVE 237 ML LIQUID (VANILLA) PO SCH ×3 (09:00→17:07)
[2019-06-17] MEDS: HYDROGEL DRESSING 90 GM TUBE TP SCH (09:05)
[2019-06-17] MEDS: MUPIROCIN OINT 2% 22 GM TUBE SCH ×2 (09:05→21:19)
[2019-06-17] MEDS: TRIAMCINOLONE ACETONIDE 0.5% 15 GM TUBE TP SCH ×2 (09:05→17:07)
[2019-06-17 16:00] VITALS: BP 105/59
[2019-06-17 16:06] VITALS: BP 108/59
--- NOTE | 2019-06-17 18:56 | NUR ---
RN CLOSING NOTES PATIENT ON BED, A/0X1. VERBALLY RESPONSIVE BUT UNABLE TO MAKE NEEDS KNOWN. ON NASAL CANNULA @2L. NO SIGNS OF SOB. HEP LOCK ON R HAND #20 . INTACT, PATENT AND FLUSHED WELL. NO SIGNS OF INFILTRATION.WAS ABLE TO TOLERATED FOOD ASSISTED BY THE SANDER OPERATOR. WOUND CARE DONE. BED IN LOW POSITION, LOCKED. CALL LIGHT WITHIN REACH. WILL ENDORSE TO NOC SHIFT.
--- NOTE | 2019-06-17 19:10 | NUR ---
RN NOTE RECEIVED PT ALERT AND ORIENTED IN BED X 1. REORIENTED PT NEEDED. CURRENTLY ON 2L OF O2 VIA NC. WITHOUT INDICATIONS OF RESPIRATORY DISTRESS, PAIN OR DISCOMFORT. BED ALARM ON. BED IN LOWEST POSITION. CALL LIGHT WITHIN REACH. WILL MONITOR.
[2019-06-17 20:00] VITALS: BP 117/69
[2019-06-18] VITALS: BP 119/73
--- NOTE | 2019-06-18 07:15 | NUR ---
MS RN OPENING NOTES RECEIVED PT FROM MUSIC AUTOGRAPHER NURSE RESTING IN BED. PT IS EASY TO AROUSE. AOX1. REORIENTED. PT IS ON 2L NC, SATURATING WELL, RESPIRATIONS EVEN AND UNLABORED. NO RESPIRATORY DISTRESS NOTED. IV IN RIGHT HAND 20 GAUGE INTACT, PATENT, FLUSHED WELL, NO S/S OF INFILTRATION. SAFETY MAINTAINED. CALL LIGHT WITHIN REACH. WILL CONTINUE MONITORING.
--- NOTE | 2019-06-18 07:15 | NUR ---
RN NOTE PT IS SLEEPING IN BED EASILY AROUSABLE IN SEMI WHITAKER'S POSITION. ALERT AND ORIENTED X 1. PT WITHOUT INDICATIONS OF PAIN OR DISCOMFORT. CURRENTLY ON 2L IF O2 VIA NC. RESPIRATIONS EVEN AND UNLABORED. PT IS PENDING DISCHARGE. BED ALARM ON. BED IN LOW POSITION. CALL LIGHT WITHIN REACH. ENDORSED TO MORNING SHIFT.
[2019-06-18 08:00] VITALS: BP 114/65
[2019-06-18] MEDS: MULTIVIT W/MINERALS 1 TAB TABLET PO SCH (08:23)
[2019-06-18] MEDS: TRIAMCINOLONE ACETONIDE 0.5% 15 GM TUBE TP SCH ×2 (08:23→17:24)
[2019-06-18] MEDS: MUPIROCIN OINT 2% 22 GM TUBE SCH ×2 (08:23→21:49)
[2019-06-18] MEDS: HYDROGEL DRESSING 90 GM TUBE TP SCH (08:24)
[2019-06-18] MEDS: ENSURE ENLIVE 237 ML LIQUID (VANILLA) PO SCH ×3 (08:25→17:23)
[2019-06-18 16:00] VITALS: BP 94/47
--- NOTE | 2019-06-18 19:25 | NUR ---
CHANGE OF SHIFT REPORT Patient in bed, awake. Oxygen 2LPM via NC, tolerating well. Patient is A/O x1 to self only with confusion. Fall/skin precaution maintained.
--- NOTE | 2019-06-18 19:30 | NUR ---
MS RN CLOSING NOTES PATIENT ENDORSED TO PERSONAL SHOPPER NURSE. IN STABLE CONDITION. NO ACUTE CHANGE IN PATIENT CONDITION. SAFETY MAINTAINED. BED LOWERED, ALARMED, CALL LIGHT WITHIN REACH. PERSONAL SHOPPER WILL CONTINUE TO MONITOR.
[2019-06-18 20:00] VITALS: BP 125/73
[2019-06-18] MEDS: ZOLPIDEM TARTRATE 5 MG TABLET PO PRN (21:52)
[2019-06-19 04:00] VITALS: BP 125/67
--- NOTE | 2019-06-19 06:30 | NUR ---
END OF SHIFT REPORT Patient in bed, remains on supplemental Oxygen at 2LPM via NC, tolerating well. Slept well with PRN Ambien. Fall/ skin precaution, denies pain. Pending discharge, CM for placement to SNF.
--- NOTE | 2019-06-19 07:15 | NUR ---
MS RN NOTES PATIENT IN BED A/OX1 ON 2 L NASAL CANNULA. NO SOB OR DISCOMFORT NOTED AT THIS TIME. BED AT THE LOWEST POSITION LOCKED. CALL LIGHT WITHIN REACH.
[2019-06-19 07:18] LABS: BASOPHILS % (AUTO) 0.6 % (0.0-2.0); EOSINOPHILS % (AUTO) 2.7 % (0.0-6.0); HEMATOCRIT 30 % (39-51); HEMOGLOBIN 10.1 g/dL (13.5-17.5); LYMPHOCYTES # (AUTO) 2.5 /CMM (0.8-4.8); LYMPHOCYTES % (AUTO) 30.2 % (20.0-44.0); MEAN CORPUSCULAR HGB CONC 33 g/dl (31.0-36.0); MEAN CORPUSCULAR VOLUME 84 fL (80-96); MONOCYTES # (AUTO) 0.6 /CMM (0.1-1.30); MONOCYTES % (AUTO) 7.6 % (2.0-12.0); NEUTROPHILS # (AUTO) 4.9 /CMM (1.8-8.9); NEUTROPHILS % (AUTO) 58.9 % (43.0-81.0); PLATELET COUNT (AUTO) 370 /CMM (150-450); RED BLOOD CELL COUNT(AUTO) 3.61 MIL/uL (4.5-6.0); WHITE BLOOD COUNT (AUTO) 8.3 K/uL (4.3-11.0)
[2019-06-19 07:47] LABS: ALANINE AMINOTRANSFERASE 37 U/L (12-78); ALBUMIN 1.7 g/dL (3.4-5.0); ALKALINE PHOSPHATASE 84 U/L (46-116); ASPARTATE AMINOTRANSFERASE 41 U/L (15-37); BILIRUBIN,TOTAL 0.1 mg/dL (0.2-1.0); CALCIUM, SERUM 7.9 mg/dL (8.5-10.1); CARBON DIOXIDE 27 mmol/L (21-32); CHLORIDE 108 mmol/L (98-107); CREATININE 1.1 mg/dL (0.6-1.3); GLUCOSE 101 mg/dL (74-106); MAGNESIUM 1.8 mg/dL (1.8-2.4); PHOSPHORUS 2.7 mg/dL (2.5-4.9); POTASSIUM 4.1 mmol/L (3.5-5.1); SODIUM SERUM 142 mmol/L (136-145); TOTAL PROTEIN, SERUM 5.5 g/dL (6.4-8.2); UREA NITROGEN, BLOOD 30 mg/dL (7-18)
[2019-06-19 08:00] VITALS: BP 94/53
[2019-06-19] MEDS: ENSURE ENLIVE 237 ML LIQUID (VANILLA) PO SCH ×3 (09:26→17:28)
[2019-06-19] MEDS: MULTIVIT W/MINERALS 1 TAB TABLET PO SCH (09:26)
[2019-06-19] MEDS: MUPIROCIN OINT 2% 22 GM TUBE SCH ×2 (09:27→23:04)
[2019-06-19] MEDS: HYDROGEL DRESSING 90 GM TUBE TP SCH (09:32)
[2019-06-19] MEDS: TRIAMCINOLONE ACETONIDE 0.5% 15 GM TUBE TP SCH ×2 (09:33→17:29)
[2019-06-19 16:00] VITALS: BP 106/61
[2019-06-19] MEDS ORDERED: LIDOCAINE 1%-EPI 1:100,000 20 ML VIAL TP ONE (16:00)
--- NOTE | 2019-06-19 16:02 | NUR ---
MS RN NOTES LIDOCAINE 1600 NOT ADMINISTRATED. THE MEDICATION IS FOR TOMORROW FOR FOREHEAD BIOPSY.
[2019-06-19 20:00] VITALS: BP 124/75
--- NOTE | 2019-06-19 20:10 | NUR ---
MS RN NOTES PATIENT IN BED A/OX1-2. NO SOB OR DISCOMFORT NOTED. ABLE TO DRING LIQUIDS WITH ASSISTANCE AND THICKENERS. PER DR OVERTON PATIENT WILL HAVE REPEAT BIOPSY OF SCALP. CALLED THE SON [facility] LEFT A MASSAGE FOR THE CONSENT. FRAME TABLE OPERATOR HELPER JORGE AWARE OF THE BIOPSY FOR TOMORROW. ALL NEEDS ATTENDED. BED AT THE LOWEST POSITION LOCKED. CALL LIGHT WITHIN REACH. ENDORSED TO SNAILER NURSE FOR MAXIMILIANO.
[2019-06-19] MEDS: ZOLPIDEM TARTRATE 5 MG TABLET PO PRN (23:03)
[2019-06-20 04:00] VITALS: BP 122/83
--- NOTE | 2019-06-20 07:15 | NUR ---
MS RN OPENING NOTES RECEIVED PATIENT RESTING IN BED. EASY TO AROUSE. AOX1. REORIENTED PATIENT. ON CONT. O2 @ 2LPM VIA NC, SATURATING WELL, RESPIRATIONS EVEN AND UNLABORED. NO RESPIRATORY DISTRESS NOTED. IV IN RIGHT HAND 20 GAUGE CLEAN, PATENT AND INTACT. NO S/S OF INFILTRATION. NO PAIN REPORTED. SAFETY MAINTAINED. BED LOCKED, LOW AND AT SEMI-WHITAKER'S POSITION, CALL LIGHT WITHIN REACH. WILL CONTINUE MONITORING.
[2019-06-20 08:00] VITALS: BP 124/70
[2019-06-20] MEDS: TRIAMCINOLONE ACETONIDE 0.5% 15 GM TUBE TP SCH ×2 (09:00→17:54)
[2019-06-20] MEDS: HYDROGEL DRESSING 90 GM TUBE TP SCH (09:00)
[2019-06-20] MEDS: MUPIROCIN OINT 2% 22 GM TUBE SCH ×2 (09:00→22:08)
[2019-06-20] MEDS: ENSURE ENLIVE 237 ML LIQUID (VANILLA) PO SCH ×3 (09:26→17:54)
[2019-06-20] MEDS: MULTIVIT W/MINERALS 1 TAB TABLET PO SCH (09:27)
[2019-06-20 16:00] VITALS: BP_SYST 98; BP_DIAS 54; BP_DIAS 59
--- NOTE | 2019-06-20 19:00 | NUR ---
MS RN CLOSING NOTE: PATIENT RESTING IN BED. AWAKE, VERBALLY RESPONSIVE AND ABLE TO MAKE NEEDS KNOWN. A/OX1. REORIENTED PATIENT. ON CONT. O2 @ 2LPM VIA NC, SATURATING WELL, RESPIRATIONS EVEN AND UNLABORED. NO RESPIRATORY DISTRESS NOTED. IV IN RIGHT HAND 20 GAUGE CLEAN, PATENT AND INTACT. NO S/S OF INFILTRATION. NO PAIN REPORTED. SAFETY MAINTAINED. BED LOCKED, LOW AND AT SEMI-WHITAKER'S POSITION, CALL LIGHT WITHIN REACH. SECOND FOREHEAD BIOPSY WAS DONE EARLIER ON SHIFT AND SPECIMEN WAS SENT TO LAB. ENDORSED TO CARRIAGE DOGGER FOR MAXIMILIANO.
--- NOTE | 2019-06-20 19:20 | NUR ---
RN NOTE RECEIVED PATIENT AWAKE AND ALERT IN BED IN SEMI WHITAKER'S POSITION. PT ALERT AND ORIENTED X 1. REORIENTED PATIENT. ON 2L OF O2 VIA NC, RESPIRATIONS EVEN AND UNLABORED. NO RESPIRATORY DISTRESS NOTED. NO INDICATIONS OF PAIN OR DISCOMFORT. IV IN RIGHT HAND 20 GAUGE CLEAN, PATENT AND INTACT. NO S/S OF INFILTRATION. SAFETY MAINTAINED. BED LOCKED AND IN LOW POSITION. CALL LIGHT WITHIN REACH. WILL CONTINUE MONITORING.
[2019-06-20 20:00] VITALS: BP 110/68
[2019-06-21] VITALS: BP 109/73
[2019-06-21 04:00] VITALS: BP 102/66
[2019-06-21 06:54] VITALS: BP 110/68
[2019-06-21 06:56] VITALS: BP 105/52
[2019-06-21 07:30] VITALS: BP 132/76
--- NOTE | 2019-06-21 07:30 | NUR ---
RN NOTE PT IN BED AWAKE AND ALERT X 1 IN STABLE CONDITION. NO INDICATIONS OF PAIN, DISCOMFORT OR RESPIRATORY DISTRESS. ALL NEEDS MET AND ATTENDED TO. BED IN LOW POSITION. BED ALARM ON, CALL LIGHT WITHIN REACH, ENDORSED TO MORNING SHIFT.
[2019-06-21 08:00] VITALS: BP 132/76
[2019-06-21] MEDS: MULTIVIT W/MINERALS 1 TAB TABLET PO SCH (08:44)
[2019-06-21] MEDS: ENSURE ENLIVE 237 ML LIQUID (VANILLA) PO SCH (08:45)
--- NOTE | 2019-06-21 13:15 | NUR ---
MS WRAPPER STEMMER OPERATOR NOTE: PATIENT WAS DISCHARGED [facility] AND WAS PICKED UP BY 2 SENIOR CATERING SALES MANAGER FOR TRANSFER. PATIENT IS IN STABLE CONDITION. REPORT WAS GIVEN TO EVERARDO ROSAS FOR PATIENT. PATIENT IS CONFUSED AND WAS NOT ABLE TO SIGN DISCHARGE FORMS, BELONGINGS AND DISCHARGE PACKET GIVEN TO STAFF. FAMILY INFORMED OF TRANSFER.
== END 2019-06-21 13:00 | DRG 606 ==
LOC: ER 11:32 → MEDSG1 12:25
PROVIDERS: ADMIT Nurse Practitioner Acute Care; ATTEND Internal Medicine
PROC: 0HB6XZX Excision of Back Skin, External Approach, Diagnostic (ICD-10-PCS; principal; 2019-06-14)
PROC: 0HB0XZX Excision of Scalp Skin, External Approach, Diagnostic (ICD-10-PCS; principal; 2019-06-14)
PROC: 0HB0XZX Excision of Scalp Skin, External Approach, Diagnostic (ICD-10-PCS; 2019-06-20)
DX: C44.519 Basal cell carcinoma of skin of other part of trunk (principal); L89.153 Pressure ulcer of sacral region, stage 3; N17.0 Acute kidney failure with tubular necrosis; N39.0 Urinary tract infection, site not specified; E44.0 Moderate protein-calorie malnutrition; D68.59 Other primary thrombophilia; E87.0 Hyperosmolality and hypernatremia; G93.40 Encephalopathy, unspecified; E86.0 Dehydration; I12.9 Hypertensive chronic kidney disease with stage 1 through stage 4 chronic kidney disease, or unspecified chronic kidney disease; N18.9 Chronic kidney disease, unspecified; E87.5 Hyperkalemia; R62.7 Adult failure to thrive; F03.90 Unspecified dementia, unspecified severity, without behavioral disturbance, psychotic disturbance, mood disturbance, and anxiety; D64.9 Anemia, unspecified; D63.8 Anemia in other chronic diseases classified elsewhere; L85.3 Xerosis cutis; N40.0 Benign prostatic hyperplasia without lower urinary tract symptoms; D72.829 Elevated white blood cell count, unspecified; E88.09 Other disorders of plasma-protein metabolism, not elsewhere classified; D63.1 Anemia in chronic kidney disease; B96.4 Proteus (mirabilis) (morganii) as the cause of diseases classified elsewhere; R53.1 Weakness; S21.201A Unspecified open wound of right back wall of thorax without penetration into thoracic cavity, initial encounter; X58.XXXA Exposure to other specified factors, initial encounter; Y93.9 Activity, unspecified; Y92.129 Unspecified place in nursing home as the place of occurrence of the external cause; T39.395A Adverse effect of other nonsteroidal anti-inflammatory drugs [NSAID], initial encounter; L53.8 Other specified erythematous conditions; Z68.20 Body mass index [BMI] 20.0-20.9, adult; L81.4 Other melanin hyperpigmentation
CPT/HCPCS: 36415; 70450-TC; 71045-TC; 76770-TC; 80048-TC; 80053-TC; 80061-TC; 80076-TC; 81000-TC; 82728-TC; 82784; 83540-TC; 83605-TC; 83735-TC; 84100-TC; 84153-TC; 84154-TC; 84155; 84165; 84439-TC; 84443-TC; 84484-TC; 85025-TC; 85730-TC; 86334; 87040-TC; 87081-TC; 87086-TC; 87186-TC; 92526; 92611-TC; 94799-TC; 97110-TC; 97112-TC; 97116-TC; 97530-TC; A6248; A6253; G0378; J0696; J3490; J7030; J7050; J7060; J7070

== ENCOUNTER 2019-06-27 15:36 | Emergency (ER) | payer BC ==
[~2019-06-27] VITALS: Ht 180.3 cm; Wt 62.6 kg
[~2019-06-27 15:36] MED LIST: AMIN887L PO; AMLO5TAB4 PO; ASCO500C16 PO; BISA10SU61 RC; CALC-168 PO; CEFT1VIA15 IV; FERR325T23 PO; FINA5TAB3 PO; LACT1CAP71 PO; MAGN400O6 PO; MELO-107 PO; METO50TA16 PO; MULT-1119 PO; NA P133E RC; PRAV20TA4 PO; TAMS-12 PO
--- NOTE | 2019-06-27 16:20 | NUR ---
CALLED DR HENAO'S OFFICE. AWAITING CALL BACK.
[2019-06-27 16:32] LABS: BASOPHILS # (AUTO) 0.1 /CMM (0.0-0.2); BASOPHILS % (AUTO) 0.7 % (0.0-2.0); EOSINOPHILS % (AUTO) 2.7 % (0.0-6.0); HEMATOCRIT 30 % (39-51); LYMPHOCYTES # (AUTO) 2.5 /CMM (0.8-4.8); LYMPHOCYTES % (AUTO) 30.3 % (20.0-44.0); MEAN CORPUSCULAR HGB CONC 33 g/dl (31.0-36.0); MEAN CORPUSCULAR VOLUME 85 fL (80-96); MONOCYTES # (AUTO) 0.5 /CMM (0.1-1.30); MONOCYTES % (AUTO) 5.9 % (2.0-12.0); NEUTROPHILS # (AUTO) 5.1 /CMM (1.8-8.9); NEUTROPHILS % (AUTO) 60.4 % (43.0-81.0); PLATELET COUNT (AUTO) 417 /CMM (150-450); RED BLOOD CELL COUNT(AUTO) 3.57 MIL/uL (4.5-6.0); WHITE BLOOD COUNT (AUTO) 8.4 K/uL (4.3-11.0)
[2019-06-27] MEDS: IV NS 0.9% 500 ML BAG IV ONE (16:33)
[2019-06-27 17:07] LABS: CREATININE 1.3 mg/dL (0.6-1.3)
[2019-06-27 17:16] LABS: ALBUMIN 1.8 g/dL (3.4-5.0); BILIRUBIN,DIRECT 0.1 mg/dL (0.0-0.2); BILIRUBIN,TOTAL 0.2 mg/dL (0.2-1.0); TOTAL PROTEIN, SERUM 6.2 g/dL (6.4-8.2)
--- NOTE | 2019-06-27 17:29 | NUR ---
[facility] TRIP#[id number]
--- NOTE | 2019-06-27 22:47 | NUR ---
UPDATED ETA 2229
--- NOTE | 2019-06-27 23:20 | NUR ---
REPORT GIVEN TO [facility] EMT. Patient discharged to home in stable condition. Written and verbal after care instructions given. EMT verbalizes understanding of instruction.
[2019-06-27 23:25] VITALS: BP 125/64
--- NOTE | 2019-06-27 23:26 | NUR ---
CALLED SEPTEMBER AT THE FACILITY RE: PT RETURNING.
== END 2019-06-27 23:26 ==
LOC: ER 15:39
DX: D04.8 Carcinoma in situ of skin of other sites (principal); F03.90 Unspecified dementia, unspecified severity, without behavioral disturbance, psychotic disturbance, mood disturbance, and anxiety; I10 Essential (primary) hypertension; Z79.899 Other long term (current) drug therapy
CPT/HCPCS: 36415; 71045; 80048; 80076; 83690; 84484; 85025; 85730; 87040 ×2; 93005; 99284; J7040

== ENCOUNTER 2019-07-01 19:37 | Inpatient (IN) | payer BC ==
[~2019-07-01] VITALS: Ht 182.9 cm; Wt 49.9 kg
--- NOTE | 2019-07-01 19:45 | NUR ---
Pt to er bb PA from snf for eval basal cell carcinoma. No immediate signs of distress noted. pt vital signs stable. Pt to er bed, changed into gown and connected to monitor. will cont to monitor pt.
[2019-07-01 20:23] LABS: BASOPHILS % (AUTO) 0.2 % (0.0-2.0); EOSINOPHILS % (AUTO) 0.1 % (0.0-6.0); HEMATOCRIT 32 % (39-51); HEMOGLOBIN 10.2 g/dL (13.5-17.5); LYMPHOCYTES # (AUTO) 1.5 /CMM (0.8-4.8); LYMPHOCYTES % (AUTO) 10.7 % (20.0-44.0); MEAN CORPUSCULAR HGB CONC 32 g/dl (31.0-36.0); MEAN CORPUSCULAR VOLUME 85 fL (80-96); MONOCYTES % (AUTO) 6.8 % (2.0-12.0); NEUTROPHILS # (AUTO) 11.5 /CMM (1.8-8.9); NEUTROPHILS % (AUTO) 82.2 % (43.0-81.0); PLATELET COUNT (AUTO) 369 /CMM (150-450); RED BLOOD CELL COUNT(AUTO) 3.75 MIL/uL (4.5-6.0)
[2019-07-01 20:32] LABS: CALCIUM, SERUM 7.9 mg/dL (8.5-10.1); CARBON DIOXIDE 29 mmol/L (21-32); CHLORIDE 108 mmol/L (98-107); CREATININE 1.5 mg/dL (0.6-1.3); GLUCOSE 110 mg/dL (74-106); POTASSIUM 3.1 mmol/L (3.5-5.1); SODIUM SERUM 145 mmol/L (136-145); UREA NITROGEN, BLOOD 41 mg/dL (7-18)
[2019-07-01] MEDS ORDERED: LIDOCAINE 2% JEL UROJET 10 ML MM ONE ×2 (20:36→21:30)
--- NOTE | 2019-07-01 20:51 | NUR ---
in and out catheter done as ordered by dr jacinto. urine collected and sent to lab.
[2019-07-01] MEDS ORDERED: POTASSIUM CHLORIDE 20 MEQ POWDER PACKET ONE (20:58)
[2019-07-01] MEDS ORDERED: IV NS 0.9% 500 ML BAG IV ONE (21:00)
[2019-07-01] MEDS ORDERED: ONDANSETRON HCL/PF 4 MG/2 ML VIAL IVP PRN (21:00)
[2019-07-01] MEDS ORDERED: Z GUARD REMEDY 2 OZ OINT TP PRN (21:00)
[2019-07-01] MEDS ORDERED: POTASSIUM CHLORIDE 20 MEQ TAB.PRT.SR PO ONE (21:00)
[2019-07-01] MEDS ORDERED: ZOLPIDEM TARTRATE 5 MG TABLET PO PRN (21:00)
[2019-07-01] MEDS ORDERED: ACETAMINOPHEN 325 MG TABLET PO PRN (21:00)
[2019-07-01 21:01] LABS: APPEARANCE,URINE Turbid (CLEAR); BILIRUBIN,URINE Negative (NEGATIVE); BLOOD, URINE Large Ery/uL (NEGATIVE); COLOR,URINE Dark (YELLOW); KETONES,URINE Negative (NEGATIVE); LEUKOCYTE ESTERASE ,URINE Large (NEGATIVE); NITRITE, URINE Negative (NEGATIVE); PH,URINE 5.5 (5.0-8.0); PROTEIN,URINE 30 mg/dl (NEGATIVE); UGLUCOSE Negative (NEGATIVE); UROBILINOGEN,URINE 0.2 EU/dL (0.2)
[2019-07-01 21:09] LABS: BACTERIA,URINE 3+ /HPF (None Seen); SQUAMOUS EPITHELIAL CELL,UR Few /HPF (None Seen); WBC,URINE TOO NUMEROUS TO COUN /HPF (0-3)
[2019-07-01] MEDS ORDERED: METRONIDAZOLE 500MG/ NS 100ML 100 ML IV ONE (21:47)
[2019-07-01] MEDS ORDERED: CEFTRIAXONE 1GM BAG (ER ONLY) 50 ML IV ONE (21:47)
[2019-07-01] MEDS ORDERED: FLAGYL/NS RTU 500 MG/100 ML PIGGYBACK IV ONE (22:00)
[2019-07-01] MEDS ORDERED: CEFTRIAXONE 1 G in IV D5W 50 ML IV ONE (22:00)
--- NOTE | 2019-07-01 22:08 | NUR ---
Report given to Mello MCGEE for continuation of care.
[2019-07-01 22:55] VITALS: BP 117/66
--- NOTE | 2019-07-01 23:00 | NUR ---
MS RN NOTE: RECEIVED PATIENT FROM ER, NO ACUTE DISTRESS NOTED. BREATHING EVEN AND UNLABORED, NO SOB NOTED. IV TO RFA IN PLACE. ORIENTED PATIENT TO ROOM AND USE OF CALL LIGHT. BED LOCKED AND IN LOWEST POSITION, CALL LIGHT IN REACH. WILL CONTINUE TO MONITOR.
--- NOTE | 2019-07-01 23:08 | NUR ---
pt to 3w via d[facility].
[2019-07-02] MEDS ORDERED: IPRATROPIUM NEB FS 0.5 MG/2.5 ML AMPUL.NEB NEB PRN (01:00)
[2019-07-02] MEDS ORDERED: ALBUTEROL HALF STRENGTH 1.25 MG/3 ML VIAL.NEB NEB PRN (01:00)
--- NOTE | 2019-07-02 01:15 | NUR ---
MS RN NOTE: PATIENT COMPLETED NURSING SWALLOW SCREENING, PATIENT ABLE TO SWALLOW WITHOUT DIFFICULTY. WILL CONTINUE TO MONITOR.
[2019-07-02] MEDS: IV NS 0.9% 1,000 ML IV PRN ×2 (01:18→22:17)
[2019-07-02] MEDS: GUAIFENESIN LA 600 MG TABLET.SA PO SCH ×3 (01:18→22:15)
--- NOTE | 2019-07-02 06:05 | NUR ---
MS RN NOTE: PATIENT RESTING IN BED, NO ACUTE DISTRESS NOTED. BREATHING EVEN AND UNLABORED, NO SOB NOTED. IV TO RFA IN PLACE, INFUSING NS AT 75ML/HR. BED LOCKED AND IN LOWEST POSITION, CALL LIGHT IN REACH. WILL ENDORSE TO DAY NURSE TO CONTINUE WITH PLAN OF CARE.
[2019-07-02] MEDS ORDERED: METRONIDAZOLE 500MG/ NS 100ML 100 ML IV ONE (06:28)
[2019-07-02] MEDS: METRONIDAZOLE 500MG/ NS 100ML 500 MG in PREMIX 1 EA IV SCH ×3 (06:29→19:20)
[2019-07-02 08:00] VITALS: BP 129/73
--- NOTE | 2019-07-02 08:30 | NUR ---
mepilex intact on forehead and mid back.
[2019-07-02] MEDS ORDERED: IPRA0.2S49 IH (08:50)
[2019-07-02] MEDS ORDERED: GUAI600T53 PO (08:50)
[2019-07-02 09:13] LABS: BASOPHILS % (AUTO) 0.1 % (0.0-2.0); EOSINOPHILS % (AUTO) 0.4 % (0.0-6.0); HEMATOCRIT 29 % (39-51); HEMOGLOBIN 9.5 g/dL (13.5-17.5); LYMPHOCYTES # (AUTO) 1.2 /CMM (0.8-4.8); LYMPHOCYTES % (AUTO) 10.3 % (20.0-44.0); MEAN CORPUSCULAR HGB CONC 32 g/dl (31.0-36.0); MEAN CORPUSCULAR VOLUME 84 fL (80-96); MONOCYTES # (AUTO) 0.7 /CMM (0.1-1.30); MONOCYTES % (AUTO) 6.1 % (2.0-12.0); NEUTROPHILS % (AUTO) 83.1 % (43.0-81.0); PLATELET COUNT (AUTO) 382 /CMM (150-450); RED BLOOD CELL COUNT(AUTO) 3.47 MIL/uL (4.5-6.0); WHITE BLOOD COUNT (AUTO) 12.1 K/uL (4.3-11.0)
[2019-07-02 09:24] LABS: CALCIUM, SERUM 7.4 mg/dL (8.5-10.1); CREATININE 1.3 mg/dL (0.6-1.3); MAGNESIUM 1.8 mg/dL (1.8-2.4); PHOSPHORUS 2.6 mg/dL (2.5-4.9); POTASSIUM 2.9 mmol/L (3.5-5.1)
[2019-07-02 16:10] VITALS: BP 124/66
--- NOTE | 2019-07-02 17:58 | NUR ---
rn texted sabrina regarding low potassium level.no reply.[facility] rider had been in earlier.straight cathed for urine for dr. janell rojas.sent to lab.attempted to weigh pt. with chair scale as pt.'s bed scale non functional.pt. refusing.and physical tx attempting to assist as well.
--- NOTE | 2019-07-02 19:30 | NUR ---
RN NOTES RECEIVED PT. AWAKE ON BED, A/OX2, NOT IN DISTRESS, NO PAIN NOTED, CALL LIGHT WITHIN REACH, [id number], CONTINUE TO MONITOR
[2019-07-02 20:00] VITALS: BP 128/65
[2019-07-02 20:04] LABS: CREATININE, URINE 112.4 MG/DL (30.0-125.0); URINE TOTAL PROTEIN 91.5 mg/dL (0-11.9)
[2019-07-02 20:05] LABS: BILIRUBIN,URINE NEGATIVE (NEGATIVE); BLOOD, URINE LARGE Ery/uL (NEGATIVE); COLOR,URINE YELLOW (YELLOW); KETONES,URINE NEGATIVE (NEGATIVE); LEUKOCYTE ESTERASE ,URINE MODERATE (NEGATIVE); NITRITE, URINE NEGATIVE (NEGATIVE); PROTEIN,URINE TRACE mg/dl (NEGATIVE); UGLUCOSE NEGATIVE (NEGATIVE); UROBILINOGEN,URINE 0.2 EU/dL (0.2)
[2019-07-02 20:15] LABS: APPEARANCE,URINE HAZY (CLEAR); BACTERIA,URINE Few /HPF (None Seen); SQUAMOUS EPITHELIAL CELL,UR Rare /HPF (None Seen); URINE AMORPHOUS URATE Moderate /HPF (None Seen); WBC,URINE 21-50 /HPF (0-3)
[2019-07-02 20:47] LABS: EOSINOPHIL,URINE None Seen
[2019-07-02] MEDS: CEFTRIAXONE 1 G in IV D5W 50 ML IV SCH (22:15)
--- NOTE | 2019-07-02 22:30 | NUR ---
RN NOTES INFORMED BETTIE ROCHA-JOHN REGARDING PT. POTASSIUM LEVEL OF 2.9- BETTIE ROCHA ORDERED POTASSIUM 40MEQ PO X1, ORDER NOTED AND CARRIED OUT
[2019-07-02] MEDS ORDERED: POTASSIUM CHLORIDE 20 MEQ TAB.PRT.SR PO ONE (23:00)
[2019-07-03] MEDS: METRONIDAZOLE 500MG/ NS 100ML 500 MG in PREMIX 1 EA IV SCH ×4 (00:12→17:10)
--- NOTE | 2019-07-03 06:28 | NUR ---
RN NOTES SLEEPING BUT AROUSABLE, MORNING CARE RENDERED, CALL LIGHT WITHIN REACH, NOT IN DISTRESS, NO APIN NOTED, PT. NEEDS ATTENDED
[2019-07-03 07:38] LABS: CALCIUM, SERUM 7.3 mg/dL (8.5-10.1); CREATININE 1.1 mg/dL (0.6-1.3)
--- NOTE | 2019-07-03 08:14 | NUR ---
MS RN NOTES PATIENT RESTING INSIDE ROOM. AWAKE, A/O X2. NO ACUTE DISTRESS. NO FACIAL GRIMACE NOTED. MAINTAINED ISOLATION PRECAUTIONS. MAINTAINED ASPIRATION PRECAUTIONS. PATIENT CALM AND RELAXED. IVF RUNNING ORDERED. SAFETY PRECAUTIONS IN PLACE. WILL CONTINUE TO MONITOR. BED LOCKED AND IN LOW POSITION. SIDE RAILS UP X 3. CALL LIGHT WITHIN EASY REACH
[2019-07-03 08:25] VITALS: BP 110/60
[2019-07-03] MEDS: GUAIFENESIN LA 600 MG TABLET.SA PO SCH ×2 (09:12→21:10)
[2019-07-03 10:04] LABS: BASOPHILS % (AUTO) 0.1 % (0.0-2.0); EOSINOPHILS % (AUTO) 0.7 % (0.0-6.0); HEMATOCRIT 28 % (39-51); HEMOGLOBIN 9.3 g/dL (13.5-17.5); LYMPHOCYTES # (AUTO) 2.2 /CMM (0.8-4.8); LYMPHOCYTES % (AUTO) 18.3 % (20.0-44.0); MEAN CORPUSCULAR HGB CONC 33 g/dl (31.0-36.0); MEAN CORPUSCULAR VOLUME 84 fL (80-96); MONOCYTES # (AUTO) 0.9 /CMM (0.1-1.30); MONOCYTES % (AUTO) 7.5 % (2.0-12.0); NEUTROPHILS # (AUTO) 8.8 /CMM (1.8-8.9); NEUTROPHILS % (AUTO) 73.4 % (43.0-81.0); PLATELET COUNT (AUTO) 341 /CMM (150-450); RED BLOOD CELL COUNT(AUTO) 3.35 MIL/uL (4.5-6.0)
[2019-07-03] MEDS: POTASSIUM CHLORIDE 20 MEQ POWDER PACKET PO SCH ×3 (11:15→12:54)
[2019-07-03] MEDS: ENSURE CLEAR 237 ML LIQUID (MIX BERRY) PO SCH ×2 (12:43→17:32)
--- NOTE | 2019-07-03 16:12 | NUR ---
MS RN NOTES RECEIVED CALL FROM DR JULIANO MCDANIELS, VERBALIZED THAT PATIENT WILL BE SCHEDULED FOR SURGERY IN AM OF 07/04/19. 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 ORDERS NOTED AND CARRIED OUT. PLACED CALL TO [facility] ([phone]) TO VERIFY INFORMED CONSENT BUT WITH NO ANSWER, LEFT MESSAGE ON VOICEMAIL. WILL CONTINUE TO MONITOR.
[2019-07-03 16:31] VITALS: BP 117/65
[2019-07-03] MEDS: IV NS 0.9% 1,000 ML IV PRN (17:09)
--- NOTE | 2019-07-03 17:16 | NUR ---
MS RN NOTES PATIENT NOTED WITH DIARRHEA EPISODE, MUCUS-LIKE APPEARANCE, NO SOLID PARTICLES NOTED. SAMPLE OBTAINED AND SENT TO LAB. <3 DAYS STAY PRIOR TO ADMISSION.
--- NOTE | 2019-07-03 17:41 | NUR ---
MS RN NOTES PLACED CALL TO [facility] ([phone]) TO VERIFY INFORMED CONSENT BUT STILL WITH NO ANSWER, LEFT MESSAGE ON VOICEMAIL. WILL CONTINUE TO FOLLOW-UP
--- NOTE | 2019-07-03 18:47 | NUR ---
MS RN NOTES PATIENT RESTING INSIDE ROOM. NO ACUTE DISTRESS. PATIENT KEPT CLEAN, DRY AND COMFORTABLE. MAINTAINED ASPIRATION PRECAUTIONS. MAINTAINED ISOLATION PRECAUTIONS. WILL BE NPO AFTER MIDNIGHT. AWAITING CALL BACK FROM NORY ARVIZU. WILL ENDORSE TO INCOMING SHIFT FOR MAXIMILIANO. BED LOCKED AND IN LOW POSITION. UPPER SIDE RAILS UP X 3. CALL LIGHT WITHIN EASY REACH
--- NOTE | 2019-07-03 19:27 | NUR ---
MS RN NOTES PLACED CALL TO [facility] ([phone]) TO VERIFY INFORMED CONSENT BUT STILL WITH NO ANSWER, LEFT MESSAGE ON VOICEMAIL. WILL CONTINUE TO FOLLOW-UP
--- NOTE | 2019-07-03 19:32 | NUR ---
MS RN NOTES LEFT MESSAGE FOR DR HENAO THAT SON [facility] UNABLE TO REACH AND THAT MULTIPLE VOICEMAIL LEFT. ENDORSED TO INCOMING SHIFT
--- NOTE | 2019-07-03 19:45 | NUR ---
MS RN OPENING NOTES PATIENT RESTING COMFORTABLY IN BED; BREATHING EVEN AND UNLABORED; NO S/S OF ACUTE RESPIRATORY DISTRESS NOTED; ISOLATION PRECAUTION MAINTAINED; RFA #20, INTACT AND PATENT; FLUSHING WELL; NO S/S OF REDNESS OR INFILTRATION. BED LOCKED IN LOW POSITION; SIDE RAILS X3. SAFETY PRECAUTIONS IN PLACE, CALL LIGHT WITHIN REACH. WILL CONTINUE TO MONITOR.
[2019-07-03 20:00] VITALS: BP 122/63
--- NOTE | 2019-07-03 20:28 | NUR ---
RN NOTES TRY TO REACH MR. [facility] GAINES (PT'S SON) AND LEFT A MESSAGE.. WAITING FOR HIM TO CALL BACK
[2019-07-03] MEDS: CEFTRIAXONE 1 G in IV D5W 50 ML IV SCH (21:13)
--- NOTE | 2019-07-03 21:30 | NUR ---
MSRN LEFT MESSAGE TO [facility] GAINES , EMERGENCY VISION TEACHER. NEED CONSENT FOR PROCEDURE SCHEDULED FOR TOMORROW. PRIMARY RN NOTIFIED.
--- NOTE | 2019-07-03 22:35 | NUR ---
RN NOTES PT'S SON [facility] GAINES CALLED BACK AND GAVE US A TELEPHONE CONSENT FOR PATIENT'S PROCEDURE TOMORROW MORNING WITNESSED BY THE CHARGE NURSE
--- NOTE | 2019-07-03 23:00 | NUR ---
MS RN NOTES PICTURES OF SKIN/WOUNDS TAKEN AND FILED IN PATIENT BINDER.
[2019-07-04] MEDS: METRONIDAZOLE 500MG/ NS 100ML 500 MG in PREMIX 1 EA IV SCH ×5 (00:16→17:59)
--- NOTE | 2019-07-04 06:30 | NUR ---
MS RN CLOSING NOTES PATIENT RESTING COMFORTABLY IN BED; BREATHING EVEN AND UNLABORED; NO S/S OF ACUTE RESPIRATORY DISTRESS NOTED; PATIENT A/O X1-2; R FA #20 INTACT AND PATENT; RUNNING NS @75ML/HR. ALL NEEDS TAKEN CARE OF. SAFETY PRECAUTIONS IN PLACE; BED LOCKED IN LOW POSITION, SEMI-FOWLERS; SIDE RAILS X3; CALL LIGHT WITHIN EASY REACH; WILL ENDORSE CONTINUITY OF CARE TO ONCOMING SHIFT.
[2019-07-04] MEDS ORDERED: BUPIVACAINE MPF 0.5% W/EPI INJ 30 ML VIAL ONE (06:38)
[2019-07-04] MEDS ORDERED: BACITRACIN 50000 UNITS/VIAL ONE (06:38)
[2019-07-04] MEDS ORDERED: LIDOCAINE HCL/MPF 1% 30 ML VIAL IJ ONE (06:38)
[2019-07-04] MEDS ORDERED: ANESTHESIA TRAY IN PYXIS 1 EA TRAY MC ONE (06:38)
--- NOTE | 2019-07-04 06:40 | NUR ---
MS RN NOTES PATIENT WHEELED BY OR STAFF FOR PROCEDURE; FLAGYL STOPPED DUE TO PATIENT GOING DOWN FOR OR. WILL ENDORSE CONTINUITY OF CARE TO ONCOMING SHIFT.
[2019-07-04] MEDS ORDERED: FENTANYL PF 100MCG/2ML AMPUL ONE (06:53)
[2019-07-04] MEDS ORDERED: LIDOCAINE 1%-EPI 1:100,000 20 ML VIAL ONE (06:56)
[2019-07-04] MEDS ORDERED: MINERAL OIL 10 ML VIAL MC ONE (06:56)
[2019-07-04 07:00] LABS: CALCIUM, SERUM 7.1 mg/dL (8.5-10.1); CREATININE 1.1 mg/dL (0.6-1.3); POTASSIUM 3.1 mmol/L (3.5-5.1)
[2019-07-04 07:13] LABS: FREE PSA 0.35 ng/mL (0.00-45); PROSTATE SPECIFIC ANTIGEN SCR 6.8 ng/mL (0.00-4.00); THYROID STIMULATING HORMONE 4.956 uIU/mL (0.358-3.74)
[2019-07-04] MEDS ORDERED: BUPIVACAINE 0.5 % PF 150 MG/30 ML VIAL ONE (07:24)
--- NOTE | 2019-07-04 07:55 | NUR ---
MS RN NOTES RECEIVED ENDORSEMENT FROM PREVIOUS SHIFT, PATIENT CURRENTLY IN OR FOR SURGICAL PROCEDURE. WILL CONTINUE TO MONITOR
[2019-07-04] MEDS: ENSURE CLEAR 237 ML LIQUID (MIX BERRY) PO SCH ×3 (08:16→16:34)
[2019-07-04] MEDS: GUAIFENESIN LA 600 MG TABLET.SA PO SCH ×2 (08:16→21:33)
--- NOTE | 2019-07-04 09:15 | NUR ---
MS RN NOTES PATIENT BACK TO UNIT FROM SURGERY. REPORT RECEIVED FROM CLEMENT MCGEE. PATIENT SLEEPING, EASILY AROUSABLE THROUGH VERBAL AND TACTILE STIMULI. NO ACUTE DISTRESS. SURGICAL SITE NOTED ON FOREHEAD AND BACK, DRESSINGS INTACT, NO ACTIVE BLEEDING NOTED. DONOR SITE FOR GRAFT ON LEFT THIGH, DRESSING IN PLACE. WILL CONTINUE TO MONITOR. BED LOCKED AND IN LOW POSITION. SIDE RAILS UP X 3. CALL LIGHT WITHIN EASY REACH
[2019-07-04] MEDS ORDERED: Potassium Chloride 40 MEQ in IV NS 0.9% 1,000 ML IV PRN (10:52)
[2019-07-04] MEDS: POTASSIUM CL. PREMIX PERIPHER. 50 ML IV SCH ×4 (12:27→16:34)
[2019-07-04 16:21] VITALS: BP 116/67
--- NOTE | 2019-07-04 16:21 | NUR ---
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 PATIENT ALREADY ON ISOLATION PRECAUTIONS. DR TALLEY MADE AWARE. ID TO BE NOTIFIED. WILL CONTINUE TO MONITOR
--- NOTE | 2019-07-04 18:15 | NUR ---
MS RN NOTES PATIENT RESTING INSIDE ROOM. NO ACUTE DISTRESS. SLEEPING, AROUSABLE THROUGH VERBAL AND TACTILE STIMULI. MAINTAINED ASPIRATION PRECAUTIONS. MAINTAINED ISOLATION PRECAUTIONS. PATIENT KEPT CLEAN, DRY AND COMFORTABLE. SURGICAL SITES COVERED AND INTACT, NO ACTIVE BLEEDING NOTED ON SITES. WILL ENDORSE TO INCOMING SHIFT FOR MAXIMILIANO. BED LOCKED AND IN LOW POSITION. SIDE RAILS UP X 3. CALL LIGHT WITHIN EASY REACH
--- NOTE | 2019-07-04 19:20 | NUR ---
MS/RN NOTES RECEIVED PT. LYING IN BED. PT. IS AWAKE, ALERT AND ORIENTED TO SELF. BREATHING EVEN AND UNLABORED ON 2LPM O2 VIA NC. NO SOB, RESPIRATORY DISTRESS OR COMPLAINTS OF PAIN NOTED AT THIS TIME. PT. WITH RIGHT FOREARM 20 GAUGE PERIPHERAL IV PRESENT, PATENT AND INTACT ADMINISTERING TO PT. NS WITH 40 MEQ KCL @ 75 ML/HR. PT. WITH POST OP SURGICAL DRESSINGS PRESENT AND INTACT. NO ACTIVE BLEEDING NOTED AT SURGICAL SITES. PER DAYSHIFT NURSE MD ONLY TO CHANGE DRESSINGS. ASPIRATION, SAFETY AND ISOLATION PRECAUTIONS IMPLEMENTED AND IN PLACE. BED LOCKED AND IN LOWEST POSITION, SIDE RAILS UP X3, BED ALARM ON, CALL LIGHT WITHIN REACH, WILL CONTINUE TO MONITOR FOR CHANGES.
[2019-07-04 20:00] VITALS: BP 109/58
[2019-07-04] MEDS: CEFTRIAXONE 1 G in IV D5W 50 ML IV SCH (21:33)
[2019-07-05] MEDS: METRONIDAZOLE 500MG/ NS 100ML 500 MG in PREMIX 1 EA IV SCH ×4 (00:34→18:06)
--- NOTE | 2019-07-05 06:18 | NUR ---
MS/RN NOTES PT. IS LYING IN BED RESTING, BREATHING EVEN AND UNLABORED ON 2LPM O2 VIA NC. NO SOB, RESPIRATORY DISTRESS OR COMPLAINTS OF PAIN NOTED AT THIS TIME AND THROUGHOUT SHIFT. PT. WITH RIGHT FOREARM 20 GAUGE PERIPHERAL IV PRESENT, PATENT AND INTACT ADMINISTERING TO PT. FLAGYL MEDICATION ORDERED. ALL PT. NEEDS MET. PT. OFFLOADED, TURNED AND REPOSITIONED Q2H AND NEEDED. ASPIRATION, SAFETY AND ISOLATION PRECAUTIONS IMPLEMENTED AND IN PLACE. BED LOCKED AND IN LOWEST POSITION, SIDE RAILS UP X3, BED ALARM ON, CALL LIGHT WITHIN REACH, WILL ENDORSE TO DAYSHIFT NURSE FOR CONTINUITY OF CARE.
[2019-07-05 06:49] LABS: CALCIUM, SERUM 7.3 mg/dL (8.5-10.1); CREATININE 1.2 mg/dL (0.6-1.3); POTASSIUM 3.7 mmol/L (3.5-5.1)
[2019-07-05 08:00] VITALS: BP 115/41
--- NOTE | 2019-07-05 08:05 | NUR ---
ms rn received on bed, awake,alert,oriented x2,not in any form of distress, respirations even and unlabored,no sob noted, lungs have rales bilaterally, occasional coughing noted,denies pain at this time,all need attended.
[2019-07-05] MEDS: ENSURE CLEAR 237 ML LIQUID (MIX BERRY) PO SCH (09:00)
[2019-07-05] MEDS: GUAIFENESIN LA 600 MG TABLET.SA PO SCH ×2 (09:00→21:48)
--- NOTE | 2019-07-05 09:30 | NUR ---
ms rn breakfast served,too much coughing during meal, st is on case. refused meds at this time.
--- NOTE | 2019-07-05 11:02 | NUR ---
WOUND CARE CONSULT: PT FOLLOWED BY PLASTIC SURGERY TEAM FOR WOUND CARE. DEFER TO SURGICAL TEAM FOR WOUND TREATMENT PLAN. PT ON ALAN ISOFLEX LOW AIRLOSS BED. SKIN PROTECTION DISCUSSED WITH NURSING STAFF. WILL SEE PRN. CURRENT VAL SCORE IS 13.
--- NOTE | 2019-07-05 12:00 | NUR ---
ms rn was seen by st, patient cannot swallow well, diet recommended.
[2019-07-05] MEDS: VANCOMYCIN HCL 125 MG/2.5 ML ORAL.SUSP PO SCH ×2 (13:58→18:07)
[2019-07-05] MEDS ORDERED: MUPIROCIN OINT 2% 22 GM TUBE SCH (15:30)
[2019-07-05 16:00] VITALS: BP 130/77
[2019-07-05] MEDS: ENSURE ENLIVE 237 ML LIQUID (VANILLA) PO SCH (18:12)
--- NOTE | 2019-07-05 19:17 | NUR ---
MS/RN NOTES RECEIVED PT. LYING IN BED. PT. IS AWAKE, ALERT AND ORIENTED TO SELF. BREATHING EVEN AND UNLABORED ON 2LPM O2 VIA NC. NO SOB, RESPIRATORY DISTRESS OR COMPLAINTS OF PAIN NOTED AT THIS TIME. PT. WITH RIGHT FOREARM 20 GAUGE IV SALINE LOCK PRESENT, PATENT AND INTACT. ASPIRATION, SAFETY AND ISOLATION PRECAUTIONS IMPLEMENTED AND IN PLACE. BED LOCKED AND IN LOWEST POSITION, SIDE RAILS UP X3, BED ALARM ON, CALL LIGHT WITHIN REACH, WILL CONTINUE TO MONITOR FOR CHANGES.
[2019-07-05 20:00] VITALS: BP 146/90
[2019-07-05] MEDS: CEFTRIAXONE 1 G in IV D5W 50 ML IV SCH (21:48)
[2019-07-06] MEDS: METRONIDAZOLE 500MG/ NS 100ML 500 MG in PREMIX 1 EA IV SCH ×4 (00:41→17:43)
[2019-07-06] MEDS: VANCOMYCIN HCL 125 MG/2.5 ML ORAL.SUSP PO SCH ×4 (00:42→17:43)
--- NOTE | 2019-07-06 06:11 | NUR ---
MS/RN NOTES PT. IS LYING IN BED RESTING. BREATHING EVEN AND UNLABORED ON 2LPM O2 VIA NC. NO SOB, RESPIRATORY DISTRESS OR S/S OF PAIN NOTED AT THIS TIME AND THROUGHOUT SHIFT. PT. WITH RIGHT FOREARM 20 GAUGE IV SALINE LOCK PRESENT, PATENT AND INTACT. ALL PT. NEEDS MET. PT. OFFLOADED, TURNED AND REPOSITIONED Q2H AND NEEDED. ASPIRATION, SAFETY AND ISOLATION PRECAUTIONS IMPLEMENTED AND IN PLACE. BED LOCKED AND IN LOWEST POSITION, SIDE RAILS UP X3, BED ALARM ON, CALL LIGHT WITHIN REACH, WILL ENDORSE TO DAYSHIFT NURSE FOR CONTINUITY OF CARE.
[2019-07-06 08:00] VITALS: BP 135/79
--- NOTE | 2019-07-06 08:15 | NUR ---
ms rn received on bed, awake,alert,oriented x1, confused,not in any form of distress, respirations even and unlabored,no sob noted, lungs have ronchi bilaterally,occasional coughing, all needs attended.
[2019-07-06] MEDS: MUPIROCIN OINT 2% 22 GM TUBE SCH ×2 (09:00→21:21)
--- NOTE | 2019-07-06 09:00 | NUR ---
ms rn' breakfast served, barely tolerated.
[2019-07-06] MEDS: GUAIFENESIN LA 600 MG TABLET.SA PO SCH ×2 (09:46→21:21)
[2019-07-06] MEDS: ENSURE ENLIVE 237 ML LIQUID (VANILLA) PO SCH ×3 (10:07→17:43)
--- NOTE | 2019-07-06 11:00 | NUR ---
ms rn was seen by speech therapy was advance to puree diet.
[2019-07-06 12:04] LABS: BASOPHILS % (AUTO) 0.1 % (0.0-2.0); EOSINOPHILS % (AUTO) 0.2 % (0.0-6.0); HEMATOCRIT 34 % (39-51); HEMOGLOBIN 10.8 g/dL (13.5-17.5); LYMPHOCYTES # (AUTO) 1.8 /CMM (0.8-4.8); LYMPHOCYTES % (AUTO) 13.3 % (20.0-44.0); MEAN CORPUSCULAR HGB CONC 32 g/dl (31.0-36.0); MEAN CORPUSCULAR VOLUME 85 fL (80-96); MONOCYTES # (AUTO) 0.7 /CMM (0.1-1.30); NEUTROPHILS # (AUTO) 11.1 /CMM (1.8-8.9); NEUTROPHILS % (AUTO) 81.4 % (43.0-81.0); PLATELET COUNT (AUTO) 407 /CMM (150-450); RED BLOOD CELL COUNT(AUTO) 3.96 MIL/uL (4.5-6.0); WHITE BLOOD COUNT (AUTO) 13.6 K/uL (4.3-11.0)
[2019-07-06 12:09] LABS: CALCIUM, SERUM 7.7 mg/dL (8.5-10.1); CARBON DIOXIDE 24 mmol/L (21-32); CHLORIDE 117 mmol/L (98-107); CREATININE 1.4 mg/dL (0.6-1.3); GLUCOSE 112 mg/dL (74-106); POTASSIUM 3.7 mmol/L (3.5-5.1); SODIUM SERUM 151 mmol/L (136-145); UREA NITROGEN, BLOOD 26 mg/dL (7-18)
[2019-07-06 16:00] VITALS: BP 127/75
--- NOTE | 2019-07-06 18:52 | NUR ---
ms rn on bed, no distress noted,all needs attended.
--- NOTE | 2019-07-06 19:30 | NUR ---
MS RN NOTES RECEIVED ON BED A/O X1,NO SOB,O2 IN USED AT 2L/NC,SALINE LOCK RIGHT FOREARM INTACT AND PATENT.ISOLATION PRECAUTION FOR MRSA NARES.NOTED DRESSING ON LEFT FOREHEAD,S/P SURGERY WITH DR HENAO.FALL PRECAUTION OBSERVED,CALL LIGHT IN REACH,NEEDS ANTICIPATED.
[2019-07-06 20:00] VITALS: BP 140/83
[2019-07-06] MEDS: HYDROCODONE/APAP 5/325MG 1 EACH TABLET PO PRN (21:27)
--- NOTE | 2019-07-06 21:27 | NUR ---
MS RN NOTES AWAKE,NOTED HAVING FACIAL GRIMACE,MEDICATED WITH NORCO 5/325MG,1 TAB GIVEN WITH APPLE SAUCE,TAKEN WELL.NEGATIVE FOR ASPIRATION.
[2019-07-06] MEDS: CEFTRIAXONE 1 G in IV D5W 50 ML IV SCH (21:45)
[2019-07-07] MEDS: METRONIDAZOLE 500MG/ NS 100ML 500 MG in PREMIX 1 EA IV SCH ×5 (00:08→23:54)
[2019-07-07] MEDS: VANCOMYCIN HCL 125 MG/2.5 ML ORAL.SUSP PO SCH ×5 (00:09→23:14)
--- NOTE | 2019-07-07 06:36 | NUR ---
MS RN NOTES SLEPT WITH INTERVALS,STILL WITH ON AND OFF PRODUCTIVE COUGH,WITH MUCINEX.SALINE LOCK REMAINS PATENT ON RIGHT FOREARM.KEPT ON ISOLATION PRECAUTION FOR MRSA NARES AND POSITIVE FOR C-DIFF.IN NO ACUTE DISTRESS.WILL; ENDORSE TO DAY NURSE FOR MAXIMILIANO.
[2019-07-07 07:51] LABS: BASOPHILS # (AUTO) 0.1 /CMM (0.0-0.2); BASOPHILS % (AUTO) 0.4 % (0.0-2.0); EOSINOPHILS % (AUTO) 0.4 % (0.0-6.0); HEMATOCRIT 32 % (39-51); HEMOGLOBIN 10.4 g/dL (13.5-17.5); LYMPHOCYTES # (AUTO) 2.4 /CMM (0.8-4.8); LYMPHOCYTES % (AUTO) 13.2 % (20.0-44.0); MEAN CORPUSCULAR HGB CONC 32 g/dl (31.0-36.0); MEAN CORPUSCULAR VOLUME 85 fL (80-96); MONOCYTES # (AUTO) 0.8 /CMM (0.1-1.30); MONOCYTES % (AUTO) 4.4 % (2.0-12.0); NEUTROPHILS # (AUTO) 14.6 /CMM (1.8-8.9); NEUTROPHILS % (AUTO) 81.6 % (43.0-81.0); PLATELET COUNT (AUTO) 375 /CMM (150-450); RED BLOOD CELL COUNT(AUTO) 3.81 MIL/uL (4.5-6.0); WHITE BLOOD COUNT (AUTO) 17.9 K/uL (4.3-11.0)
[2019-07-07 08:01] LABS: CALCIUM, SERUM 7.6 mg/dL (8.5-10.1); CARBON DIOXIDE 20 mmol/L (21-32); CHLORIDE 118 mmol/L (98-107); CREATININE 1.4 mg/dL (0.6-1.3); GLUCOSE 98 mg/dL (74-106); MAGNESIUM 1.5 mg/dL (1.8-2.4); PHOSPHORUS 2.8 mg/dL (2.5-4.9); POTASSIUM 3.7 mmol/L (3.5-5.1); SODIUM SERUM 151 mmol/L (136-145); UREA NITROGEN, BLOOD 25 mg/dL (7-18)
[2019-07-07 08:04] LABS: ALBUMIN 1.8 g/dL (3.4-5.0); BILIRUBIN,DIRECT 0.1 mg/dL (0.0-0.2); BILIRUBIN,TOTAL 0.2 mg/dL (0.2-1.0); TOTAL PROTEIN, SERUM 5.5 g/dL (6.4-8.2)
[2019-07-07 08:48] VITALS: BP 119/68
[2019-07-07] MEDS: GUAIFENESIN LA 600 MG TABLET.SA PO SCH ×2 (09:50→21:19)
[2019-07-07] MEDS: ENSURE ENLIVE 237 ML LIQUID (VANILLA) PO SCH ×3 (09:51→18:01)
[2019-07-07] MEDS: MUPIROCIN OINT 2% 22 GM TUBE SCH ×2 (09:52→21:00)
[2019-07-07] MEDS ORDERED: Magnesium 1GM/D5W 100ML PREMIX 100 ML IV SCH (10:15)
[2019-07-07 16:01] VITALS: BP 134/76
--- NOTE | 2019-07-07 19:45 | NUR ---
MS RN NOTES RECEIVED CALM AND QUIET ON BED,BREATHING NON LABORED,O2 IN USED AT 2L/NC TO KEEP O2 SAT ABOVE 90%.ISOLATION PRECAUTION FOR MRSA NARES AND POSITIVE C-DIFF.NS AT TKO RATE INFUSING ON RIGHT FOREARM VIA IV PUMP.CALL LIGHT IN REACH,NEEDS ANTICIPATED.
[2019-07-07 20:00] VITALS: BP 149/86
[2019-07-07 20:54] VITALS: BP 149/86
[2019-07-07] MEDS: CEFTRIAXONE 1 G in IV D5W 50 ML IV SCH (22:32)
[2019-07-08] MEDS: METRONIDAZOLE 500MG/ NS 100ML 500 MG in PREMIX 1 EA IV SCH ×3 (05:26→17:15)
[2019-07-08] MEDS: VANCOMYCIN HCL 125 MG/2.5 ML ORAL.SUSP PO SCH ×3 (05:29→17:15)
--- NOTE | 2019-07-08 06:37 | NUR ---
MS RN NOTES NO SIGNIFICANT CHANGE IN STATUS.CALM AND QUIET THRU OUT SHIFT.NO FALL NO INJURY.ALL MEDS ADMINISTERED,TAKEN WELL.IN NO ACUTE DISTRESS.WILL ENDORSE TO DAY NURSE FOR MAXIMILIANO.
[2019-07-08 07:10] LABS: CALCIUM, SERUM 7.6 mg/dL (8.5-10.1); CREATININE 1.2 mg/dL (0.6-1.3); MAGNESIUM 1.7 mg/dL (1.8-2.4); POTASSIUM 3.5 mmol/L (3.5-5.1)
--- NOTE | 2019-07-08 08:00 | NUR ---
MS/RN NOTES RECEIVED PT. LYING IN BED. PT. IS AWAKE, ALERT AND ORIENTED TO SELF. BREATHING EVEN AND UNLABORED ON 2LPM O2 VIA NC. NO SOB, RESPIRATORY DISTRESS OR COMPLAINTS OF PAIN NOTED AT THIS TIME. PT. WITH RIGHT FOREARM 20 GAUGE IV SALINE LOCK PRESENT, PATENT AND INTACT. ASPIRATION, SAFETY AND ISOLATION PRECAUTIONS FOR MRSA NARES AND C DIFF IMPLEMENTED AND IN PLACE. BED LOCKED AND IN LOWEST POSITION, SIDE RAILS UP X3, BED ALARM ON, CALL LIGHT WITHIN REACH, WILL CONTINUE TO MONITOR FOR CHANGES.
[2019-07-08 10:05] VITALS: BP 137/79
[2019-07-08] MEDS: GUAIFENESIN LA 600 MG TABLET.SA PO SCH ×2 (10:59→20:59)
[2019-07-08] MEDS: ENSURE ENLIVE 237 ML LIQUID (VANILLA) PO SCH ×3 (10:59→17:13)
[2019-07-08] MEDS: HYDROCODONE/APAP 5/325MG 1 EACH TABLET PO PRN (11:00)
[2019-07-08] MEDS: IV D5W 1,000 ML IV PRN (11:04)
[2019-07-08] MEDS: Magnesium 1GM/D5W 100ML PREMIX 100 ML IV SCH ×2 (11:06→13:41)
[2019-07-08] MEDS: MUPIROCIN OINT 2% 22 GM TUBE SCH ×2 (11:24→20:59)
[2019-07-08 16:29] VITALS: BP 131/84
[2019-07-08 20:00] VITALS: BP 149/87
--- NOTE | 2019-07-08 20:20 | NUR ---
REPORTS GIVEN TO OSVALDO MCGEE FOR CONTINUITY OF CARE.
[2019-07-08 20:36] VITALS: BP 149/87
[2019-07-09] MEDS: VANCOMYCIN HCL 125 MG/2.5 ML ORAL.SUSP PO SCH ×4 (00:36→18:22)
[2019-07-09] MEDS: METRONIDAZOLE 500MG/ NS 100ML 500 MG in PREMIX 1 EA IV SCH ×4 (00:36→19:01)
[2019-07-09] MEDS: IV D5W 1,000 ML IV PRN ×2 (02:20→14:49)
--- NOTE | 2019-07-09 06:19 | NUR ---
RN OPENING NOTES Received patient on bed, on RA, no SOB/respiratory distress noted. Patient denies any discomfort at this time. With IVF infusing well as ordered. Kept on bed clean, dry and comfortable. On fall and aspiration precautions. Call light within easy reach. Will continue to monitor accordingly.
--- NOTE | 2019-07-09 06:53 | NUR ---
RN CLOSING NOTES Patient asleep on bed on RA, no sob/respiratory distress noted. Afebrile the whole shift. All needs attended. Kept on bed clean, dry and comfortable. Call light within easy reach. On fall and aspiration precautions. For discharge today. Endorsed.
[2019-07-09 08:00] VITALS: BP 122/85
--- NOTE | 2019-07-09 08:06 | NUR ---
MS/RN OPENING NOTES PATIENT IS LYING IN BED RESTING COMFORTABLY. BREATHING EVEN AND UNLABORED ON ROOM AIR. NO SOB, RESPIRATORY DISTRESS OR COMPLAINTS OF PAIN NOTED AT THIS TIME. PATIENT WITH LEFT AC 18 GAUGE IV SALINE LOCK PRESENT, CLEAN, DRY AND INTACT. BED LOCKED AND IN LOWEST POSITION, SIDE RAILS UP X2, CALL LIGHT WITHIN REACH, WILL CONTINUE TO MONITOR.
[2019-07-09] MEDS: MUPIROCIN OINT 2% 22 GM TUBE SCH ×2 (09:00→21:53)
[2019-07-09] MEDS: GUAIFENESIN LA 600 MG TABLET.SA PO SCH ×2 (09:57→21:49)
[2019-07-09] MEDS: ENSURE ENLIVE 237 ML LIQUID (VANILLA) PO SCH ×3 (09:58→17:00)
--- NOTE | 2019-07-09 11:00 | NUR ---
MS/RN NOTES PATIENT BM TODAY SOFT AND BROWN IN COLOR
[2019-07-09 12:09] LABS: CALCIUM, SERUM 7.6 mg/dL (8.5-10.1); CREATININE 1.1 mg/dL (0.6-1.3); POTASSIUM 3.3 mmol/L (3.5-5.1)
[2019-07-09 16:00] VITALS: BP 127/78
--- NOTE | 2019-07-09 19:04 | NUR ---
MS/RN CLOSING NOTES PATIENT IS ALERT AND ORIENTED X3. DENIES PAIN AT THIS TIME. SEEN AND EXAMINED BY MD WITH ORDERS AND CARRIED OUT. SEEN AND EXAMINED BY MD WITH ORDERS NOTED AND CARRIED OUT. KEPT PATIENT CLEAN AND DRY. NO RESPIRATORY DISTRESS NOTED. 1 UNIT PRBC WAS GIVEN, HGB 6.9. MIDLINE AT RIGHT UPPER ARM PATENT AND INTACT. NO BLOOD TRANSFUSION REACTION NOTED. BLOOD TRANSFUSION IS ON GOING. PATIENT BED IS ON LOWEST POSITION AND LOCKED. SIDE RAILS UP X 2. WILL ENDORSED TO REVENUE OFFICER.
[2019-07-09 20:00] VITALS: BP 143/80
[2019-07-09 20:45] VITALS: BP 143/80
[2019-07-10] MEDS: METRONIDAZOLE 500MG/ NS 100ML 500 MG in PREMIX 1 EA IV SCH ×4 (00:17→12:53)
[2019-07-10] MEDS: VANCOMYCIN HCL 125 MG/2.5 ML ORAL.SUSP PO SCH ×5 (00:17→23:05)
[2019-07-10] MEDS: IV D5W 1,000 ML IV PRN ×2 (00:35→12:20)
--- NOTE | 2019-07-10 07:22 | NUR ---
ENDING NOTES: Remains confused pleasent and cooperative. Enjoys cpnversing Isolation continued
[2019-07-10 08:00] VITALS: BP 125/70
[2019-07-10 08:09] LABS: BASOPHILS % (AUTO) 0.2 % (0.0-2.0); EOSINOPHILS % (AUTO) 1.5 % (0.0-6.0); HEMATOCRIT 31 % (39-51); HEMOGLOBIN 9.9 g/dL (13.5-17.5); LYMPHOCYTES # (AUTO) 2.1 /CMM (0.8-4.8); LYMPHOCYTES % (AUTO) 16.6 % (20.0-44.0); MEAN CORPUSCULAR HGB CONC 32 g/dl (31.0-36.0); MEAN CORPUSCULAR VOLUME 85 fL (80-96); MONOCYTES # (AUTO) 0.7 /CMM (0.1-1.30); NEUTROPHILS # (AUTO) 9.4 /CMM (1.8-8.9); NEUTROPHILS % (AUTO) 75.7 % (43.0-81.0); PLATELET COUNT (AUTO) 390 /CMM (150-450); RED BLOOD CELL COUNT(AUTO) 3.63 MIL/uL (4.5-6.0); WHITE BLOOD COUNT (AUTO) 12.4 K/uL (4.3-11.0)
[2019-07-10 08:19] LABS: CALCIUM, SERUM 7.2 mg/dL (8.5-10.1); POTASSIUM 3.6 mmol/L (3.5-5.1)
[2019-07-10] MEDS: GUAIFENESIN LA 600 MG TABLET.SA PO SCH ×2 (09:20→21:42)
[2019-07-10] MEDS: ENSURE ENLIVE 237 ML LIQUID (VANILLA) PO SCH ×3 (09:22→16:55)
[2019-07-10] MEDS: MUPIROCIN OINT 2% 22 GM TUBE SCH ×2 (09:22→21:48)
[2019-07-10] MEDS: POTASSIUM CL. PREMIX PERIPHER. 50 ML IV SCH ×4 (10:21→16:54)
[2019-07-10 16:00] VITALS: BP 126/81
--- NOTE | 2019-07-10 18:42 | NUR ---
MS/RN CLOSING NOTES PATIENT IS ALERT AND ORIENTED X2. PATIENT DENIES PAIN AT THIS TIME. NO RESPIRATORY DISTRESS NOTED AT THIS TIME. SEEN AND EXAMINED BY MD WITH ORDERS NOTED AND CARRIED OUT. BED IN LOWEST POSITION AND LOCKED. SIDERAILS UP X2. CALL LIGHT WITHIN REACH. D5W 1L AT 120ML/HR ON AND INFUSING WELL. RIGHT AC 20G PATENT AND INTACT. ALL DUE PRESCRIBED MEDS WAS GIVEN. KEPT PATIENT CLEAN AND DRY THE WHOLE TIME. WILL ENDORSED TO REGIONAL HR MANAGER FOR CONTINUITY OF CARE.
--- NOTE | 2019-07-10 19:00 | NUR ---
RN medsurg opening notes Received Pt from morning nurse. Pt is alert and orientedX1 and confused. Pt is resting in bed comfortably. Respiration is normal. no SOB. No S/S of distress noted. IV sites RAC# 20 is clean, intact, patent and infusing well D5W @ 120 ml/hr. Safety precautions is maintained. Bed at low position, brakes locked, side rails upX3 and call light is within reach. Will continue to monitor.
[2019-07-10 20:00] VITALS: BP 131/61
[2019-07-11] MEDS: IV D5W 1,000 ML IV PRN (03:28)
[2019-07-11] MEDS: VANCOMYCIN HCL 125 MG/2.5 ML ORAL.SUSP PO SCH ×4 (05:03→23:10)
--- NOTE | 2019-07-11 07:00 | NUR ---
RN medsurg closing notes Pt is resting in bed comfortably. Pt is alert and orientedX1. Respiration is normal. no SOB. No S/S of distress noted. IV sites at RAC# 20 is clean, intact, patent and infusing well D5W @ 120 ml/hr. VS is stable. Routine meds were given as ordered. Kept Pt clean, dry and comfortable. All needs met and attended. Safety precautions is maintained. Bed at low position, brakes locked, side rails upX3 and call light is within reach. Will endorse to morning nurse for MAXIMILIANO.
--- NOTE | 2019-07-11 07:30 | NUR ---
MS/RN OPENING NOTES RECEIVED PATIENT IN BED RESTING COMFORTABLY IN MODERATE HIGH BACK REST, ALERT AND ORIENTED X1. NO SIGNS OF DISTRESS NOTED AT THIS TIME. IVF OF D5W AT 120ML/HR ON AND INFUSING WELL. RIGHT AC 20G PATENT AND INTACT. SAFETY MEASURES IN PLACE, BED IN LOW LOCKED POSITION WITH SIDE RAILS UP X3. CALL LIGHT WITHIN REACH. WILL CONTINUE TO MONITOR.
[2019-07-11 08:00] VITALS: BP 129/76
[2019-07-11] MEDS: GUAIFENESIN LA 600 MG TABLET.SA PO SCH ×2 (09:13→21:30)
[2019-07-11] MEDS: ENSURE ENLIVE 237 ML LIQUID (VANILLA) PO SCH ×3 (09:13→17:09)
[2019-07-11] MEDS: MUPIROCIN OINT 2% 22 GM TUBE SCH ×2 (09:22→21:32)
[2019-07-11 13:11] LABS: BASOPHILS % (AUTO) 0.1 % (0.0-2.0); EOSINOPHILS % (AUTO) 0.4 % (0.0-6.0); HEMATOCRIT 30 % (39-51); HEMOGLOBIN 9.5 g/dL (13.5-17.5); MEAN CORPUSCULAR HGB CONC 32 g/dl (31.0-36.0); MEAN CORPUSCULAR VOLUME 86 fL (80-96); MONOCYTES # (AUTO) 0.6 /CMM (0.1-1.30); MONOCYTES % (AUTO) 4.7 % (2.0-12.0); NEUTROPHILS # (AUTO) 10.7 /CMM (1.8-8.9); NEUTROPHILS % (AUTO) 79.8 % (43.0-81.0); PLATELET COUNT (AUTO) 384 /CMM (150-450); RED BLOOD CELL COUNT(AUTO) 3.47 MIL/uL (4.5-6.0); WHITE BLOOD COUNT (AUTO) 13.4 K/uL (4.3-11.0)
[2019-07-11 13:30] LABS: ALBUMIN 1.7 g/dL (3.4-5.0); BILIRUBIN,TOTAL 0.3 mg/dL (0.2-1.0); CALCIUM, SERUM 7.4 mg/dL (8.5-10.1); CREATININE 1.2 mg/dL (0.6-1.3); MAGNESIUM 1.8 mg/dL (1.8-2.4); PHOSPHORUS 2.2 mg/dL (2.5-4.9); POTASSIUM 3.8 mmol/L (3.5-5.1); TOTAL PROTEIN, SERUM 5.3 g/dL (6.4-8.2)
[2019-07-11 16:00] VITALS: BP 141/86
--- NOTE | 2019-07-11 19:02 | NUR ---
MS/RN CLOSING NOTES PATIENT IN BED RESTING COMFORTABLY IN MODERATE HIGH BACK REST, ALERT AND ORIENTED X1. NO SIGNS OF DISTRESS NOTED THROUGHOUT THE SHIFT. IV ACCESS ON RIGHT AC 20G, SL. PATENT AND INTACT. ISOLATION PRECAUTION MAINTAINED. SAFETY MEASURES IN PLACE, BED IN LOW LOCKED POSITION WITH SIDE RAILS UP X3. CALL LIGHT WITHIN REACH. WILL ENDORSE TO TAPE EDGE MACHINE OPERATOR NURSE FOR MAXIMILIANO.
--- NOTE | 2019-07-11 19:50 | NUR ---
RN OPENING NOTES RECEIVED REPORT FROM DAYSHIFT EVERARDO LUEVANO. FOUND Pt AWAKE IN BED, WATCHING TV. NO S/S OF ACUTE DISTRESS OR SOB NOTED. 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 ON A PUREED DIET WITH FEEDER. IV ACCESS ON RAC #20G, SL. PER REPORT Pt IS TO BE DISCHARGED BACK TO [facility] TOMORROW AM. SAFETY MEASURES IN PLACE. BED LOW, LOCKED, HOB ELEVATED, SIDE RAILS UP, CALL LIGHT AND BEDSIDE TABLE WITHIN REACH. WILL CONTINUE TO MONITOR Pt's CONDITION AND SAFETY THROUGHOUT THE NIGHT.
[2019-07-11 20:00] VITALS: BP 100/60
[2019-07-12] MEDS: VANCOMYCIN HCL 125 MG/2.5 ML ORAL.SUSP PO SCH ×4 (05:45→23:01)
--- NOTE | 2019-07-12 06:51 | NUR ---
RN CLOSING NOTES NO OTHER SIGNIFICANT CHANGES IN Pt's CONDITION. Pt REMAINED STABLE DURING THE NIGHT. NO S/S OF ACUTE DISTRESS OR SOB NOTED DURING THE SHIFT. ALL NEEDS MET AND ATTENDED TO. SAFETY MEASURES IN PLACE. WILL ENDORSE TO DAYSHIFT RN FOR Pt's MAXIMILIANO.
[2019-07-12 08:00] VITALS: BP 116/55
[2019-07-12] MEDS: MUPIROCIN OINT 2% 22 GM TUBE SCH ×2 (09:00→21:00)
--- NOTE | 2019-07-12 10:00 | NUR ---
PLANS FOR DC BACK TO SNF.NO CHANGES.
[2019-07-12] MEDS: GUAIFENESIN LA 600 MG TABLET.SA PO SCH ×2 (10:11→22:52)
[2019-07-12] MEDS: ENSURE ENLIVE 237 ML LIQUID (VANILLA) PO SCH ×3 (10:23→18:09)
--- NOTE | 2019-07-12 12:00 | NUR ---
JORGE ORO PA IN AND DONOR SITE DRESSING CHANGED,BACK DRESSING CHG.
[2019-07-12 16:00] VITALS: BP 114/56
--- NOTE | 2019-07-12 19:45 | NUR ---
RN OPENING NOTES RECEIVED REPORT FROM DAYSCOFT EVERARDO MARK. FOUND Pt ASLEEP IN BED, EASILY AWAKENED. NO S/S OF ACUTE DISTRESS OR SOB NOTED. 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 ON A PUREED DIET WITH FEEDER. IV ACCESS ON RAC #20G, SL. PER REPORT Pt WAS SUPPOSE TO BE DISCHARGED BACK TO [facility] TODAY BUT DUE TO INSURANCE ISSUES, WAS DENIED AT THE MOMENT. DISCHARGE IS ON HOLD UNTIL CASE MANAGEMENT FIGURES OUT PLACEMENT AND INSURANCE ISSUE. SAFETY MEASURES IN PLACE. BED LOW, LOCKED, HOB ELEVATED, SIDE RAILS UP, CALL LIGHT AND BEDSIDE TABLE WITHIN REACH. WILL CONTINUE TO MONITOR Pt's CONDITION AND SAFETY THROUGHOUT THE NIGHT.
[2019-07-12 20:00] VITALS: BP 147/75
[2019-07-13] MEDS: VANCOMYCIN HCL 125 MG/2.5 ML ORAL.SUSP PO SCH ×3 (05:04→17:56)
--- NOTE | 2019-07-13 07:10 | NUR ---
MS RN NOTES RECEIVED PATIENT IN BED ASLEEP, AROUSABLE TO VERBAL AND TACTILE STIMULI. HOB ELEVATED. NO SOB. DENIES ANY C/O PAIN NOR DISCOMFORT AT THIS TIME. RIGHT AC # 20 SL INTACT AND PATENT. BED IN LOWEST POSITION, LOCKED. BED SIDERAILS UPX2. CALL LIGHT WITHIN REACH. BED ALARM ON.
[2019-07-13 08:00] VITALS: BP 127/74
[2019-07-13] MEDS: GUAIFENESIN LA 600 MG TABLET.SA PO SCH ×2 (09:06→21:42)
[2019-07-13] MEDS: ENSURE ENLIVE 237 ML LIQUID (VANILLA) PO SCH ×3 (09:06→17:22)
[2019-07-13 16:00] VITALS: BP 102/64
--- NOTE | 2019-07-13 18:20 | NUR ---
MS RN NOTES RELAYED MRSA RESULT OF NARES. POSITIVE, PER dR. TALLEY NO NEED TO ISOLATE.
--- NOTE | 2019-07-13 18:53 | NUR ---
MS RN CLOSING NOTES PATIENT RESTING COMFORTABLY IN BED. ALERT AND ORIENTED TO SELF. ABLE TO ANSWER SIMPLE QUESTIONS. HOB ELEVATED. NO SOB. DENIES ANY C/O PAIN NOR DISCOMFORT AT THIS TIME. RIGHT AC # 20 SL INTACT AND PATENT. BED IN LOWEST POSITION, LOCKED. BED SIDERAILS UPX2. CALL LIGHT WITHIN REACH. BED ALARM ON. IN NO APPARENT DISTRESS.
--- NOTE | 2019-07-13 19:40 | NUR ---
MS RN NOTES RECEIVED ON BED SLEEPING,AROUSABLE TO VERBAL STIMULI,BREATHING NON LABORED,SKIN WARM AND DRY TO THE TOUCH,LEFT FOREHEAD EXCISION OF BASAL CARCINOMA INTACT AND DRY.SALINE LOCK INTACT AND PATENT.WILL CONTINUE TO MONITOR STATUS.
[2019-07-13 20:00] VITALS: BP 140/79
--- NOTE | 2019-07-13 21:00 | NUR ---
MS RN NOTES DUE PO MEDS ADMINISTERED WITH APPLE SAUCE ,TAKEN WELL.NEGATIVE FOR ASPIRATION
[2019-07-14] MEDS: VANCOMYCIN HCL 125 MG/2.5 ML ORAL.SUSP PO SCH ×4 (00:39→17:12)
[2019-07-14 06:00] VITALS: BP 140/82
--- NOTE | 2019-07-14 06:17 | NUR ---
MS RN NOTES SLEPT WELL AT NIGHT.REPOSITION PER PROTOCOL,MEDS GIVEN WITH APPLE SAUCE,TAKEN WELL.NEGATIVE FOR ASPIRATION.FOR D/C PLANNING,AWAITING FOR PLACEMENT.IN NO ACUTE DISTRESS.WILL ENDORSE TO SHANTELL RN DAY NURSE FOR MAXIMILIANO.
--- NOTE | 2019-07-14 07:34 | NUR ---
MS RN OPENING NOTE PATIENT IN BED RESTING COMFORTABLY. PATIENT IN NO ACUTE DISTRESS. NO SOB NOTED. PATIENT BREATHING IS EVEN AND UNLABORED. PATIENT BED ALARM IS ON. PATIENT SAFETY PRECAUTIONS IN PLACE. PATIENT BED IS LOCKED AND IN LOWEST POSITION. CALL LIGHT WITHIN REACH. WILL CONTINUE TO MONITOR.
[2019-07-14 07:51] LABS: BASOPHILS % (AUTO) 0.4 % (0.0-2.0); EOSINOPHILS % (AUTO) 0.9 % (0.0-6.0); HEMATOCRIT 28 % (39-51); HEMOGLOBIN 9.1 g/dL (13.5-17.5); LYMPHOCYTES # (AUTO) 1.8 /CMM (0.8-4.8); LYMPHOCYTES % (AUTO) 20.4 % (20.0-44.0); MEAN CORPUSCULAR HGB CONC 32 g/dl (31.0-36.0); MEAN CORPUSCULAR VOLUME 87 fL (80-96); MONOCYTES # (AUTO) 0.8 /CMM (0.1-1.30); MONOCYTES % (AUTO) 8.8 % (2.0-12.0); NEUTROPHILS # (AUTO) 6.1 /CMM (1.8-8.9); NEUTROPHILS % (AUTO) 69.5 % (43.0-81.0); PLATELET COUNT (AUTO) 414 /CMM (150-450); RED BLOOD CELL COUNT(AUTO) 3.23 MIL/uL (4.5-6.0); WHITE BLOOD COUNT (AUTO) 8.7 K/uL (4.3-11.0)
[2019-07-14 08:00] VITALS: BP 150/82
[2019-07-14 08:06] LABS: CALCIUM, SERUM 7.5 mg/dL (8.5-10.1); CREATININE 1.3 mg/dL (0.6-1.3); POTASSIUM 3.8 mmol/L (3.5-5.1)
[2019-07-14] MEDS: GUAIFENESIN LA 600 MG TABLET.SA PO SCH ×2 (08:54→20:59)
[2019-07-14] MEDS: ENSURE ENLIVE 237 ML LIQUID (VANILLA) PO SCH ×3 (08:54→16:01)
[2019-07-14 16:00] VITALS: BP 150/88
--- NOTE | 2019-07-14 18:15 | NUR ---
MS RN CLOSING NOTE PATIENT IN BED RESTING COMFORTABLY. PATIENT IN NO ACUTE DISTRESS. NO SOB NOTED. PATIENT BREATHING IS EVEN AND UNLABORED. HOB IS ELEVATED. WOUND CARE PROVIDED ORDERED. PATIENT TURNED AND REPOSITIONED Q2H. PATIENT EXTREMITIES OFFLOADED ON PILLOWS. PATIENT KEPT CLEAN, DRY AND COMFORTABLE THROUGHOUT SHIFT. PATIENT BED ALARM IS ON. PATIENT SAFETY PRECAUTIONS IN PLACE. PATIENT BED IS LOCKED AND IN LOWEST POSITION. CALL LIGHT WITHIN REACH. WILL ENDORSE CARE TO PM SHIFT FOR MAXIMILIANO.
[2019-07-14 20:00] VITALS: BP 145/75
--- NOTE | 2019-07-14 20:00 | NUR ---
MS RN NOTES RECEIVED ON BED A/O X1,CONFUSED,RESPOND TO NAME.ISOLATION PRECAUTION FOR MRSA NARES AND C- DIFF POSITIVE,DRESS TO LEFT THIGH INTACT AND DRY.LEFT FOREHEAD DRESSING IN PLACE.ON GEL BED FOR SKIN MANAGEMENT.WILL CONTINUE TO MONITOR STATUS.
[2019-07-14] MEDS: MUPIROCIN OINT 2% 22 GM TUBE SCH (21:11)
[2019-07-15] MEDS: VANCOMYCIN HCL 125 MG/2.5 ML ORAL.SUSP PO SCH ×2 (00:05→05:48)
--- NOTE | 2019-07-15 06:15 | NUR ---
MS RN NOTES FAIRLY RESTED,SCROTAL REDNESS MANAGE WITH SKIN BARRIER,REPOSITION PER PROTOCOL.KEPT ON ISOLATION PRECAUTION FOR MRSA NARES AND C-DIFF.FOR D/C PLANNING AWAITING PLACEMENT PER CASE MANAGEMENT.
[2019-07-15 08:00] VITALS: BP 137/82
[2019-07-15] MEDS: MUPIROCIN OINT 2% 22 GM TUBE SCH ×2 (09:02→20:54)
[2019-07-15] MEDS: ENSURE ENLIVE 237 ML LIQUID (VANILLA) PO SCH ×3 (09:02→16:17)
[2019-07-15] MEDS: GUAIFENESIN LA 600 MG TABLET.SA PO SCH ×2 (09:02→20:52)
[2019-07-15] MEDS: HYDROCORTISONE 1% CREAM 28.35 GM TUBE TP SCH ×2 (12:45→16:18)
[2019-07-15] MEDS: CLOTRIMAZOLE 1% 15 GM TUBE TP SCH ×2 (12:45→16:17)
[2019-07-15 16:00] VITALS: BP 130/64
--- NOTE | 2019-07-15 18:40 | NUR ---
MS RN NOTES PATIENT IN BED RESTING COMFORTABLY IN MODERATE HIGH BACK REST. A/O X1, NO SIGNS OF DISTRESS NOTED THROUGHOUT THE SHIFT. IV ACCESS ON RIGHT ARM #20, SL. PATENT AND INTACT. SAFETY MEASURES IN PLACE, BED ON LOWEST POSITION AND LOCKED. BED ALARM ON. CALL LIGHT IN REACH. ISOLATION PRECAUTION MAINTAINED. WILL ENDORSE TO SMALL BOAT ENGINEER NURSE FOR MAXIMILIANO.
--- NOTE | 2019-07-15 19:17 | NUR ---
MS RN OPENING NOTE PATIENT ON ISOLATION FOR C.DIFF AND MRSA. RECEIVED PATIENT IN BED. A.O X1. TOLERATING ROOM AIR. RESPIRATIONS ARE EVEN AND UNLABORED. NO S/S SOB NOTED. IN NO APPARENT DISTRESS. NO MANIFESTATION OF PAIN AT THIS TIME. IV ACCESS IN RAC#18 PATENT AND SL. BED IS LOW AND LOCKED, HOB ELEVATED, SIDE RIALS UP X3, BED ALARM ON. CALL LIGHT WITHIN REACH. WILL CONTINUE OT MONITOR.
[2019-07-15 20:00] VITALS: BP 142/84
--- NOTE | 2019-07-16 07:30 | NUR ---
MS RN OPENING NOTES RECEIVED PATIENT IN BED RESTING COMFORTABLY IN MODERATE HIGH BACK REST. A/O X1, NO SIGNS OF DISTRESS NOTED AT THIS TIME. IV ACCESS ON R HAND #20, SL. INTACT AND PATENT. ISOLATION PRECAUTION MAINTAINED. SAFETY MEASURES IN PLACE, BED ON LOWEST POSITION AND LOCKED. BED ALARM ON. CALL LIGHT IN REACH. WILL CONTINUE TO MONITOR.
[2019-07-16 08:00] VITALS: BP 151/86
--- NOTE | 2019-07-16 08:06 | NUR ---
MS RN CLOSING NOTE PATIENT REMAINS ON ISOLATION FOR C.DIFF AND MRSA. PATIENT IN BED. A/O X1. TOLERATING ROOM AIR. RESPIRATIONS ARE EVEN AND UNLABORED. NO SOB NOTED. NO DISTRESS NOTED. NO MANIFESTATION OF PAIN NOTED THROUGHOUT SHIFT. IV ACCESS MAINTAINED IN RAC#18 PATENT AND SL. BED IS LOW AND LOCKED, HOB ELEVATED, SIDE RIALS UP X3, BED ALARM ON. CALL LIGHT WITHIN REACH. WILL ENDORSE TO NEXT SHIFT.
[2019-07-16] MEDS: ENSURE ENLIVE 237 ML LIQUID (VANILLA) PO SCH ×5 (08:19→21:11)
[2019-07-16] MEDS: GUAIFENESIN LA 600 MG TABLET.SA PO SCH ×2 (08:19→21:07)
[2019-07-16] MEDS: MUPIROCIN OINT 2% 22 GM TUBE SCH ×2 (08:20→21:11)
[2019-07-16] MEDS: HYDROCORTISONE 1% CREAM 28.35 GM TUBE TP SCH ×2 (08:21→16:21)
[2019-07-16] MEDS: CLOTRIMAZOLE 1% 15 GM TUBE TP SCH ×2 (08:21→16:20)
[2019-07-16 16:00] VITALS: BP_SYST 150; BP_SYST 153; BP_DIAS 100; BP_DIAS 84
--- NOTE | 2019-07-16 18:52 | NUR ---
MS RN CLOSING NOTES PATIENT IN BED RESTING COMFORTABLY IN MODERATE HIGH BACK REST. A/O X1, NO SIGNS OF DISTRESS NOTED THROUGHOUT THE SHIFT. IV ACCESS ON R HAND #20, SL. INTACT AND PATENT. ISOLATION PRECAUTION MAINTAINED. SAFETY MEASURES IN PLACE, BED ON LOWEST POSITION AND LOCKED. BED ALARM ON. CALL LIGHT IN REACH. WILL ENDORSE TO DERMATOLOGY PROCEDURAL PHYSICIAN NURSE FOR MAXIMILIANO.
--- NOTE | 2019-07-16 19:40 | NUR ---
MS RN NOTES RECEIVED PATIENT IN BED RESTING COMFORTABLY IN MODERATE HIGH BACK REST. A/O X1, NO APPARENT SIGNS OF DISTRESS NOTED. IV ACCESS ON R HAND #20, SL. INTACT AND PATENT. ISOLATION PRECAUTION MAINTAINED. SAFETY MEASURES IN PLACE, BED ON LOWEST POSITION AND LOCKED. BED ALARM ON. CALL LIGHT WITH IN REACH. WILL CONTINUE TO MONITOR ACCORDINGLY.
[2019-07-16 20:00] VITALS: BP 128/81
--- NOTE | 2019-07-17 07:09 | NUR ---
RN NOTES ALL NEEDS ATTENDED AND MET. ABLE TO REST COMFORTABLY, SAFETY MEASURES IN PLACED, ASPIRATION PRECAUTION EMPHASIZED, ENDORSED TO AM NURSE FOR CONTINUITY OF CARE.
[2019-07-17 08:00] VITALS: BP 148/77
[2019-07-17] MEDS: ENSURE ENLIVE 237 ML LIQUID (VANILLA) PO SCH ×4 (08:43→21:30)
[2019-07-17] MEDS: CLOTRIMAZOLE 1% 15 GM TUBE TP SCH ×2 (08:44→16:59)
[2019-07-17] MEDS: GUAIFENESIN LA 600 MG TABLET.SA PO SCH ×2 (08:45→21:13)
[2019-07-17] MEDS: HYDROCORTISONE 1% CREAM 28.35 GM TUBE TP SCH ×2 (08:45→17:00)
[2019-07-17] MEDS: MUPIROCIN OINT 2% 22 GM TUBE SCH ×2 (08:45→21:30)
[2019-07-17 16:00] VITALS: BP 130/74
--- NOTE | 2019-07-17 18:37 | NUR ---
MS RN CLOSING NOTES PATIENT IN BED RESTING COMFORTABLY IN MODERATE HIGH BACK REST. A/O X1, NO SIGNS OF DISTRESS NOTED THROUGHOUT THE SHIFT. ISOLATION PRECAUTION MAINTAINED. SAFETY MEASURES IN PLACE, BED ON LOWEST POSITION AND LOCKED. BED ALARM ON. CALL LIGHT IN REACH. WILL ENDORSE TO LABORATORY PHLEBOTOMIST NURSE FOR MAXIMILIANO.
--- NOTE | 2019-07-17 19:55 | NUR ---
MS RN OPENING NOTES PATIENT RECEIVED RESTING IN BED COMFORTABLY; A/O X1; ISOLATION PRECAUTIONS MAINTAINED; BREATHING EVEN AND UNLABORED; NO S/S OF ACUTE RESPIRATORY DISTRESS NOTED; SAFETY PRECAUTIONS IN PLACE; BED LOCKED IN LOW POSITION; SIDE RAILS X2; CALL LIGHT WITHIN REACH; WILL CONTINUE TO MONITOR.
[2019-07-17 20:00] VITALS: BP 148/76
[2019-07-18 06:25] LABS: BASOPHILS % (AUTO) 0.5 % (0.0-2.0); EOSINOPHILS % (AUTO) 0.6 % (0.0-6.0); HEMATOCRIT 29 % (39-51); HEMOGLOBIN 9.3 g/dL (13.5-17.5); LYMPHOCYTES % (AUTO) 25.5 % (20.0-44.0); MEAN CORPUSCULAR HGB CONC 32 g/dl (31.0-36.0); MEAN CORPUSCULAR VOLUME 86 fL (80-96); MONOCYTES # (AUTO) 0.8 /CMM (0.1-1.30); MONOCYTES % (AUTO) 10.1 % (2.0-12.0); NEUTROPHILS # (AUTO) 4.9 /CMM (1.8-8.9); NEUTROPHILS % (AUTO) 63.3 % (43.0-81.0); PLATELET COUNT (AUTO) 397 /CMM (150-450); RED BLOOD CELL COUNT(AUTO) 3.33 MIL/uL (4.5-6.0); WHITE BLOOD COUNT (AUTO) 7.7 K/uL (4.3-11.0)
--- NOTE | 2019-07-18 06:55 | NUR ---
MS RN CLOSING NOTES PATIENT SLEEPING IN BED COMFORTABLY; A/O X 1; BREATHING EVEN AND UNLABORED; PATIENT TOLERATING ROOM AIR WELL; NO S/S OF ACUTE RESPIRATORY DISTRESS NOTED; WOUND CARE DONE; ALL NEEDS TENDED TO; ISOLATION PRECAUTIONS MAINTAINED; BED LOCKED IN LOW POSITION; SAFETY PRECAUTIONS IN PLACE; BILATERAL UPPER SIDE RAILS X2; CALL LIGHT WITHIN REACH; WILL ENDORSE CONTINUITY OF CARE TO ONCOMING SHIFT.
[2019-07-18 06:57] LABS: ALANINE AMINOTRANSFERASE 26 U/L (12-78); ALBUMIN 1.8 g/dL (3.4-5.0); ALKALINE PHOSPHATASE 89 U/L (46-116); ASPARTATE AMINOTRANSFERASE 62 U/L (15-37); BILIRUBIN,TOTAL 0.3 mg/dL (0.2-1.0); CALCIUM, SERUM 8.1 mg/dL (8.5-10.1); CARBON DIOXIDE 28 mmol/L (21-32); CHLORIDE 118 mmol/L (98-107); CREATININE 1.6 mg/dL (0.6-1.3); GLUCOSE 107 mg/dL (74-106); MAGNESIUM 2.2 mg/dL (1.8-2.4); PHOSPHORUS 3.5 mg/dL (2.5-4.9); POTASSIUM 3.6 mmol/L (3.5-5.1); SODIUM SERUM 155 mmol/L (136-145); UREA NITROGEN, BLOOD 28 mg/dL (7-18)
--- NOTE | 2019-07-18 07:30 | NUR ---
MS/RN Opening Note Patient received awake and alert, able to responds all stimuli. Pt does no appears pain or any discomfort, respiratory even and unlabored with oxygen via N/C at 2 Ls, no s/s of distress observed. Skin is warm to touch, intact IV site. Kept lower position of bed with elevated HOB, side rail up x 2. Call light within reach, will continue to monitor.
[2019-07-18 08:00] VITALS: BP 144/88
[2019-07-18] MEDS: GUAIFENESIN LA 600 MG TABLET.SA PO SCH ×2 (08:38→21:12)
[2019-07-18] MEDS: ENSURE ENLIVE 237 ML LIQUID (VANILLA) PO SCH ×4 (08:41→21:12)
[2019-07-18] MEDS: HYDROCORTISONE 1% CREAM 28.35 GM TUBE TP SCH ×2 (08:42→17:01)
[2019-07-18] MEDS: CLOTRIMAZOLE 1% 15 GM TUBE TP SCH ×2 (08:43→17:02)
[2019-07-18] MEDS: MUPIROCIN OINT 2% 22 GM TUBE SCH ×2 (10:16→21:12)
--- NOTE | 2019-07-18 12:30 | NUR ---
Wound dressing removed ordered by MD, no active drainage or complication observed, noticed pink granular tissues on healing wound, and clean/dry.
[2019-07-18] MEDS: NEOMY SULF/BACITRAC ZN/POLY 15 GM TUBE TP SCH (13:00)
[2019-07-18 16:00] VITALS: BP 153/90
--- NOTE | 2019-07-18 18:45 | NUR ---
MS/RN Closing Note Patient stay on bed comfortably no appear pain or discomfort, skin is warm to touch, clean/dry, changed dressing. Respiration even and unlabored. Keep lower position of bed with elevated HOB. Call light within reach, will endorse hourly shift.
--- NOTE | 2019-07-18 19:42 | NUR ---
MS RN OPENING NOTES PATIENT SLEEPING IN BED COMFORTABLY; PATIENT ON 2L NC; TOLERATING WELL; BREATHING EVEN AND UNLABORED; NO S/S OF ACUTE RESPIRATORY DISTRESS NOTED; ISOLATION PRECAUTIONS MAINTAINED; SAFETY PRECAUTIONS IN PLACE; BED LOCKED IN LOW POSITION; SIDE RAILS X4; CALL LIGHT WITHIN REACH; WILL CONTINUE TO MONITOR;
[2019-07-18 20:00] VITALS: BP 141/78
--- NOTE | 2019-07-19 06:56 | NUR ---
MS RN CLOSING NOTES PATIENT RESTING IN BED COMFORTABLY; PATIENT A/O X1; PATIENT CONFUSED; PATIENT ON 2L NC; TOLERATING WELL, BREATHING EVEN AND UNLABORED; NO S/S OF ACUTE RESPIRATORY DISTRESS NOTED; WOUND CARE DONE; ALL NEEDS ATTENDED TO; BED LOCKED IN LOW POSITION; BILATERAL UPPER SIDE RAILS X2; CALL LIGHT WITHIN REACH; STILL AWAITING DC PLANNING TO SNF; WILL ENDORSE CONTINUITY OF CARE TO ONCOMING SHIFT.
[2019-07-19 08:00] VITALS: BP 130/80
[2019-07-19] MEDS: GUAIFENESIN LA 600 MG TABLET.SA PO SCH ×2 (08:53→21:53)
[2019-07-19] MEDS: ENSURE ENLIVE 237 ML LIQUID (VANILLA) PO SCH ×4 (08:55→21:53)
[2019-07-19] MEDS: MUPIROCIN OINT 2% 22 GM TUBE SCH ×2 (08:56→21:55)
[2019-07-19] MEDS: HYDROCORTISONE 1% CREAM 28.35 GM TUBE TP SCH ×2 (08:56→17:48)
[2019-07-19] MEDS: CLOTRIMAZOLE 1% 15 GM TUBE TP SCH ×2 (08:57→17:48)
[2019-07-19 13:45] LABS: BASOPHILS % (AUTO) 0.2 % (0.0-2.0); EOSINOPHILS % (AUTO) 0.2 % (0.0-6.0); HEMATOCRIT 29 % (39-51); HEMOGLOBIN 9.4 g/dL (13.5-17.5); LYMPHOCYTES # (AUTO) 1.6 /CMM (0.8-4.8); LYMPHOCYTES % (AUTO) 23.2 % (20.0-44.0); MEAN CORPUSCULAR HGB CONC 33 g/dl (31.0-36.0); MEAN CORPUSCULAR VOLUME 86 fL (80-96); MONOCYTES # (AUTO) 0.7 /CMM (0.1-1.30); MONOCYTES % (AUTO) 9.7 % (2.0-12.0); NEUTROPHILS # (AUTO) 4.6 /CMM (1.8-8.9); NEUTROPHILS % (AUTO) 66.7 % (43.0-81.0); PLATELET COUNT (AUTO) 399 /CMM (150-450); RED BLOOD CELL COUNT(AUTO) 3.38 MIL/uL (4.5-6.0); WHITE BLOOD COUNT (AUTO) 6.9 K/uL (4.3-11.0)
[2019-07-19 14:33] LABS: ALANINE AMINOTRANSFERASE 36 U/L (12-78); ALBUMIN 1.8 g/dL (3.4-5.0); ALKALINE PHOSPHATASE 92 U/L (46-116); ASPARTATE AMINOTRANSFERASE 80 U/L (15-37); BILIRUBIN,TOTAL 0.2 mg/dL (0.2-1.0); CALCIUM, SERUM 8.3 mg/dL (8.5-10.1); CARBON DIOXIDE 34 mmol/L (21-32); CHLORIDE 120 mmol/L (98-107); CREATININE 1.7 mg/dL (0.6-1.3); GLUCOSE 108 mg/dL (74-106); MAGNESIUM 2.4 mg/dL (1.8-2.4); PHOSPHORUS 3.6 mg/dL (2.5-4.9); POTASSIUM 3.6 mmol/L (3.5-5.1); TOTAL PROTEIN, SERUM 6.2 g/dL (6.4-8.2); UREA NITROGEN, BLOOD 33 mg/dL (7-18)
[2019-07-19 14:39] LABS: SODIUM SERUM 160 mmol/L (136-145)
--- NOTE | 2019-07-19 14:50 | NUR ---
received sodium lab value of 160.montse castellano texted.to order fluids
[2019-07-19] MEDS: NEOMY SULF/BACITRAC ZN/POLY 15 GM TUBE TP SCH (15:08)
--- NOTE | 2019-07-19 15:10 | NUR ---
new iv start #22 rt. forearm .tolerated well.
[2019-07-19] MEDS: IV D5W 1,000 ML IV PRN (15:34)
[2019-07-19 16:00] VITALS: BP 156/91
--- NOTE | 2019-07-19 18:00 | NUR ---
montse contacted regARDING HIGH SODIUM,FLUIDS ORDERED.
--- NOTE | 2019-07-19 19:30 | NUR ---
MS RN NOTES PATIENT IN BED AWAKE, ALERT AND ORIENTED X 1. BREATHING EVEN AND UNLABORED ON NC. SHOWS NO SIGNS OF ACUTE RESPIRATORY DISTRESS, NO ACUTE PAIN. IV ON R HAND INTACT, RUNNINGS NS AT 100ML/HR. SHOWS NO SIGNS OF ACUTE RESPIRATORY DISTRESS, NO ACUTE PAIN. SAFETY PRECAUTIONS IN PLACE. BED IN LOWEST POSITION, LOCKED, AND CALL LIGHT KEPT WITHIN REACH. WILL CONTINUE TO MONITOR.
--- NOTE | 2019-07-19 20:52 | NUR ---
MS RN NOTES HAND OFF REPORT GIVEN TO CAMILA FOR MAXIMILIANO.
[2019-07-19 21:00] VITALS: BP 145/87
--- NOTE | 2019-07-19 21:00 | NUR ---
ms supervising librarian initial notes Recieved report from Ivonne/RN then checked pt he's in bed lying with IVF still infusing on his right forearm. Resting with eyes closed but arouse to stimuli. Not in any acute distress noted at this time. on Isolation precaution implemented and observed. kept him warm and comfortable at all times. will continue monitoring. bed in low and lock in position with side rails up.
--- NOTE | 2019-07-19 22:00 | NUR ---
MS KLAUS NOTES ROUTINE MEDS GIVEN PO ORDERED WITH APPLE SAUCE ASPIRATION PRECAUTION IMPLEMENTED AND OBSERVED, KEPT HIM ON SEMI FOWLERS POSITION. TACO CARE RENDERED WITH THE HELPED OF LEHR TENDER AND WELL WOUND DRESSING CHANGED. REPOSITION HIM FOR COMFORT. WILL CONTINUE MONITORING.
[2019-07-20] MEDS: IV D5W 1,000 ML IV PRN ×2 (02:19→22:45)
--- NOTE | 2019-07-20 02:28 | NUR ---
MS KLAUS NOTES PT SLEEPING COMFORTABLY IN BED WITHOUT ANY DISTRESS NOTED. , IVF STILL INFUSING. KEPT HIM WARM AND COMFORTABLE AT ALL TIMES. WILL CONTINUE MONITORING. PLACE CALL LIGHT AT REACH.
[2019-07-20] MEDS: HYDROCORTISONE 1% CREAM 28.35 GM TUBE TP SCH ×3 (06:00→16:54)
[2019-07-20] MEDS: NEOMY SULF/BACITRAC ZN/POLY 15 GM TUBE TP SCH ×2 (06:00→09:30)
[2019-07-20] MEDS: CLOTRIMAZOLE 1% 15 GM TUBE TP SCH ×3 (06:00→16:55)
--- NOTE | 2019-07-20 06:55 | NUR ---
ms informatics specialist closing notes pt resting after morning care done and wound care tx as well. Stable toni the night slept well. no signs of any acute distress noted. all due meds given and all needs met. IVF still infusing on his right forearm .reposition him for comfort. kept him warm and comfortable at all times. safety precaution implemented and observed. will endorse to am nurse for continuity of care.
--- NOTE | 2019-07-20 07:30 | NUR ---
RN MS NOTES PT IN BED, AWAKE, ALERT TO SELF, NO SIGN OF PAIN OR DISTRESS, CALL LIGHT WITHIN REACH, KEPT WARM AND COMFORTABLE IN BED, ISOLATION PRECAUTIONS OBSERVED, ASSISTED WITH BREAKFAST, ASPIRATION PRECAUTIONS OBSERVED.
[2019-07-20 08:00] VITALS: BP 156/99
[2019-07-20 08:06] LABS: BASOPHILS % (AUTO) 0.2 % (0.0-2.0); EOSINOPHILS % (AUTO) 0.6 % (0.0-6.0); HEMATOCRIT 29 % (39-51); HEMOGLOBIN 9.1 g/dL (13.5-17.5); LYMPHOCYTES # (AUTO) 2.1 /CMM (0.8-4.8); LYMPHOCYTES % (AUTO) 30.4 % (20.0-44.0); MEAN CORPUSCULAR HGB CONC 32 g/dl (31.0-36.0); MEAN CORPUSCULAR VOLUME 88 fL (80-96); MONOCYTES # (AUTO) 0.7 /CMM (0.1-1.30); MONOCYTES % (AUTO) 9.8 % (2.0-12.0); PLATELET COUNT (AUTO) 378 /CMM (150-450); RED BLOOD CELL COUNT(AUTO) 3.25 MIL/uL (4.5-6.0); WHITE BLOOD COUNT (AUTO) 6.8 K/uL (4.3-11.0)
[2019-07-20 08:22] LABS: ALANINE AMINOTRANSFERASE 26 U/L (12-78); ALBUMIN 1.7 g/dL (3.4-5.0); ALKALINE PHOSPHATASE 82 U/L (46-116); ASPARTATE AMINOTRANSFERASE 46 U/L (15-37); BILIRUBIN,TOTAL 0.2 mg/dL (0.2-1.0); CALCIUM, SERUM 8.6 mg/dL (8.5-10.1); CARBON DIOXIDE 30 mmol/L (21-32); CHLORIDE 117 mmol/L (98-107); CREATININE 1.7 mg/dL (0.6-1.3); GLUCOSE 100 mg/dL (74-106); MAGNESIUM 2.3 mg/dL (1.8-2.4); PHOSPHORUS 3.8 mg/dL (2.5-4.9); POTASSIUM 3.6 mmol/L (3.5-5.1); SODIUM SERUM 154 mmol/L (136-145); UREA NITROGEN, BLOOD 28 mg/dL (7-18)
[2019-07-20] MEDS: GUAIFENESIN LA 600 MG TABLET.SA PO SCH ×2 (09:23→21:58)
[2019-07-20] MEDS: MUPIROCIN OINT 2% 22 GM TUBE SCH ×2 (09:30→22:00)
[2019-07-20] MEDS: ENSURE ENLIVE 237 ML LIQUID (VANILLA) PO SCH ×4 (09:30→21:00)
--- NOTE | 2019-07-20 12:34 | NUR ---
RN MS NOTES PT IN BED, BEING ASSISTED WITH LUNCH, ASPIRATION PRECAUTIONS OBSERVED, KEPT COMFORTABLE, TURNED AND REPOSITIONED FOR COMFORT AND CIRCULATION, IV FLUIDS INFUSING WELL.
[2019-07-20 16:00] VITALS: BP 146/74
--- NOTE | 2019-07-20 18:37 | NUR ---
RN MS NOTES PT IN BED, AWAKE, ALERT TO SELF, VERBALLY RESPONSIVE, NO SIGN OF PAIN OR DISTRESS, IV FLUIDS INFUSING WELL, ASPIRATION PRECAUTIONS PROVIDED DURING MEALS, PM CARE PROVIDED, SKIN TREATMENTS DONE, TURNED AND REPOSITIONED Q2 HOURS, KEPT BOTH HEELS OFFLOADED, KEPT CLEAN AND DRY, ALL NEEDS ATTENDED.
[2019-07-20 20:00] VITALS: BP 137/94
--- NOTE | 2019-07-20 20:00 | NUR ---
ms mykel notes received report from am nurse and seen pt in bed lying resting with eyes closed. not in any acute distress noted, IVF still infusing, breathing even and non-labored. kept him warm and comfortable at all times. skin warm and dry to touch. kept him warm and comfortable at all times. bed alarm set for safety. still on isolation precaution implemented and observed. place call light at reach.
--- NOTE | 2019-07-20 22:25 | NUR ---
ms mykel notes routine meds given with apple sauce, aspiration precaution implemented . Ensure not available at this time. sponge bath rendered and wound care also done , reposition pt for comfort. will continue monitoring.bed alarm set for pt safety.
--- NOTE | 2019-07-21 | NUR ---
ms peoplesoft hcm consultant notes pt resting comfortably in bed without any distress noted kept her warm and comfortable at all times. will continue monitoring.
--- NOTE | 2019-07-21 03:00 | NUR ---
ms spine surgeon notes pt remains sleeping comfortably in bed , IVF still infusing.
--- NOTE | 2019-07-21 06:52 | NUR ---
ms tin can laborer closing notes pt back to sleep after morning care done. not in any acute distress noted. Stable toni the night and slept well. all due meds given and all needs met. morning care done . kept him warm and comfortable at all times. reposition pt for comfort. bed in low and lock and position with side rails up. be alarm set for safety. isolation precaution implemented and observed. endorse to am nurse for continuity of care.
[2019-07-21 07:50] LABS: CARBON DIOXIDE 35 mmol/L (21-32); CHLORIDE 112 mmol/L (98-107); CREATININE 1.7 mg/dL (0.6-1.3); GLUCOSE 120 mg/dL (74-106); POTASSIUM 3.9 mmol/L (3.5-5.1); SODIUM SERUM 150 mmol/L (136-145); UREA NITROGEN, BLOOD 27 mg/dL (7-18)
[2019-07-21 08:00] VITALS: BP 142/77
[2019-07-21] MEDS: GUAIFENESIN LA 600 MG TABLET.SA PO SCH ×2 (08:32→22:47)
[2019-07-21] MEDS: HYDROCORTISONE 1% CREAM 28.35 GM TUBE TP SCH ×2 (09:35→16:35)
[2019-07-21] MEDS: MUPIROCIN OINT 2% 22 GM TUBE SCH ×2 (09:35→22:47)
[2019-07-21] MEDS: NEOMY SULF/BACITRAC ZN/POLY 15 GM TUBE TP SCH (09:35)
[2019-07-21] MEDS: CLOTRIMAZOLE 1% 15 GM TUBE TP SCH ×2 (09:35→16:35)
[2019-07-21] MEDS: ENSURE ENLIVE 237 ML LIQUID (VANILLA) PO SCH ×4 (09:36→21:00)
[2019-07-21] MEDS: IV D5W 1,000 ML IV PRN (14:22)
--- NOTE | 2019-07-21 17:03 | NUR ---
Patients IV leaking and removed.NO s/s infection or infiltration. Miah N.P notified. Patient will be D/C tomorrow in am.
--- NOTE | 2019-07-21 18:46 | NUR ---
PATIENT IN BED AWAKE, ALERT AND ORIENTED X 1-2. BREATHING EVEN AND UNLABORED ON ROOM AIR. SHOWS NO SIGNS OF ACUTE RESPIRATORY DISTRESS,DENIES PAIN. NO IV AT THIS TIME , SHARMIN N.P. AWARE. SAFETY PRECAUTIONS IN PLACE. BED IN LOWEST POSITION, LOCKED, AND CALL LIGHT KEPT WITHIN REACH. ALL NEEDS ATTENDED; WOUND CARE ORDERED. WILL ENDORSE TO NEXT SHIFT FOR MAXIMILIANO.
--- NOTE | 2019-07-21 19:24 | NUR ---
ms mykel initial notes received report from am nurse and seen pt in bed on sitting position with side railsx2 up and bed in low and lock in position. respiration even and non-labored not in any acute distress noted. still on isolation precaution. response to his name .no IV line at this time. will re-insert later. kept him warm and comfortable at all times. place call light at reach. will continue monitoring.
--- NOTE | 2019-07-22 | NUR ---
ms miter saw operator notes pt sleeping comfortably in bed without any acute distress noted. IVF still infusing. kept him warm and comfortable at all times.
[2019-07-22 06:54] LABS: CALCIUM, SERUM 7.9 mg/dL (8.5-10.1); CARBON DIOXIDE 33 mmol/L (21-32); CHLORIDE 112 mmol/L (98-107); CREATININE 1.7 mg/dL (0.6-1.3); GLUCOSE 105 mg/dL (74-106); POTASSIUM 3.3 mmol/L (3.5-5.1); SODIUM SERUM 152 mmol/L (136-145); UREA NITROGEN, BLOOD 37 mg/dL (7-18)
--- NOTE | 2019-07-22 07:20 | NUR ---
MS HOMICIDE SQUAD SERGEANT CLOSING NOTES PT RESTING AT THIS TIME WITHOUT ANY DISTRESS NOTED. STABLE GABI THE NIGHT AND SLEPT WELL. AM CARE DONE AND WOUND CARE WELL. IVF STILL INFUSING. KEPT HIM WARM AND COMFORTABLE AT ALL TIMES. ENDORSE TO AM NURSE FOR CONTINUITY OF CARE.
[2019-07-22 08:00] VITALS: BP 131/67
[2019-07-22] MEDS ORDERED: POTASSIUM CHLORIDE 20 MEQ TAB.PRT.SR PO ONE (08:00)
[2019-07-22] MEDS: GUAIFENESIN LA 600 MG TABLET.SA PO SCH ×2 (08:36→21:51)
[2019-07-22] MEDS: HYDROCORTISONE 1% CREAM 28.35 GM TUBE TP SCH ×2 (08:41→17:28)
[2019-07-22] MEDS: NEOMY SULF/BACITRAC ZN/POLY 15 GM TUBE TP SCH ×2 (08:41→17:28)
[2019-07-22] MEDS: ENSURE ENLIVE 237 ML LIQUID (VANILLA) PO SCH ×4 (08:41→21:51)
[2019-07-22] MEDS: CLOTRIMAZOLE 1% 15 GM TUBE TP SCH ×2 (08:41→17:28)
[2019-07-22] MEDS: MUPIROCIN OINT 2% 22 GM TUBE SCH ×2 (09:07→21:55)
[2019-07-22] MEDS: IV D5W 1,000 ML IV PRN (13:48)
[2019-07-22 16:00] VITALS: BP 132/80
--- NOTE | 2019-07-22 18:42 | NUR ---
PATIENT IN BED AWAKE, ALERT AND ORIENTED X 1-2. BREATHING EVEN AND UNLABORED ON ROOM AIR. SHOWS NO SIGNS OF ACUTE RESPIRATORY DISTRESS,DENIES PAIN. SAFETY PRECAUTIONS IN PLACE. BED IN LOWEST POSITION, LOCKED, AND CALL LIGHT KEPT WITHIN REACH. ALL NEEDS ATTENDED; WOUND CARE ORDERED. PATIENT D/C TO "[facility]" BOARD AND CARE FACILITY. ALL PAPERWORK PREPARED, EXCEPT D/C PICTURES. NEWSPAPER REPORTER TIME 2100 PM. WILL ENDORSE TO NEXT SHIFT FOR MAXIMILIANO.
--- NOTE | 2019-07-22 19:15 | NUR ---
MS RN NOTE RECEIVED PT IN STABLE CONDITION A/O X1. NO SIGNS OF SOB OR DISTRESS, NO INDICATION OF PAIN OR N/V. IV IN R WRIST #[address] ALL CURRENT NEEDS ATTENDED TO. SAFETY PRECAUTIONS IN PLACE, ISOLATION PRECAUTIONS IN PLACE. WILL CONT. TO MONITOR.
[2019-07-22 20:00] VITALS: BP 120/72
--- NOTE | 2019-07-22 20:53 | NUR ---
MS RN NOTE PER BRENT BLACKWELL, TRANSPORT WILL BE LATE ABOUT 45 MIN. WILL CONT. TO MONITOR.
--- NOTE | 2019-07-22 22:20 | NUR ---
MS RN NOTE PT DISCHARGED VIA [facility] W/ AMBULANCE STAFF. PT IN STABLE CONDITION A/O X1-2 NO SIGNS OF SOB OR DISTRESS. DISCHARGE VITALS STABLE. IV REMOVED, ID BAND REMOVED. ALL BELONGINGS SIGNED FOR. ALL DISCHARGE PAPER WORK SIGNED BY 2 RN. ALL DISCHARGE SKIN ASSESSMENT PHOTOS TAKEN AND PLACED IN CHART.
--- NOTE | 2019-07-23 01:00 | NUR ---
MS RN NOTE RECEIVED CALL FROM [facility] PERSONNEL, THEY ARE AT THE BOARD AND CARE. NO ONE IS OPENING THE DOOR AT THE BOARD AND CARE. WILFRED (CM) LEFT NO NUMBER FOR BOARD AND CARE. PER RAFITA (ENGINEERED WOOD DESIGNER) HAVE THE PATIENT RETURN TO [facility]. VELASQUEZ (KAR) ALSO AWARE.
--- NOTE | 2019-07-23 02:45 | NUR ---
MS RN NOTE PT ARRIVED TO FLOOR VIA GURNEY ACCOMPANIED BY AMBULANCE STAFF. NO SIGNS OF SOB OR DISTRESS, NO INDICATION OF PAIN OR N/V. ALL CURRENT NEEDS ATTENDED TO. BED LOW, LOCKED, UPPER RAILS UP, ISOLATION PRECAUTIONS IN PLACE, AND CALL LIGHT WITHIN REACH. WILL CONT. TO MONITOR. DR. GUERRERO AWARE OF PT ARRIVAL. WILL ENDORSE TO FOLLOW UP WITH CASE MANAGEMENT IN AM.
[2019-07-23 07:00] VITALS: BP 137/63
--- NOTE | 2019-07-23 07:10 | NUR ---
MS RN NOTES PATIENT IN ALERT ORIENTED X 1. NO ACUTE DISTRESS NOTED, BREATHING UNLABORED. SAFETY MEASURES IN PLACE. CALL LIGHT WITHIN REACH. WILL CONTINUE TO MONITOR ACCORDINGLY.
[2019-07-23] MEDS: GUAIFENESIN LA 600 MG TABLET.SA PO SCH (09:22)
[2019-07-23] MEDS: ENSURE ENLIVE 237 ML LIQUID (VANILLA) PO SCH ×3 (09:23→17:01)
[2019-07-23] MEDS: CLOTRIMAZOLE 1% 15 GM TUBE TP SCH ×2 (09:24→16:58)
[2019-07-23] MEDS: MUPIROCIN OINT 2% 22 GM TUBE SCH (09:41)
[2019-07-23] MEDS: HYDROCORTISONE 1% CREAM 28.35 GM TUBE TP SCH ×2 (09:42→17:00)
--- NOTE | 2019-07-23 18:55 | NUR ---
MS STAIN WIPER NOTES PATIENT DISCHARGE TO BOARD AND [facility] ([phone], ) WITH STABLE VITAL SIGNS. NO ACUTE DISTRESS NOTED. BREATHING UNLABORED. NO SOB NOTED. DISCHARGE INSTRUCTIONS GIVEN TO THE EMT PERSONNEL TO BE PROVIDED TO BOARD AND [facility]. ALL BELONGINGS ACCOUNTED FOR. NEEDS ATTENDED AND ANTICIPATED. KEPT CLEAN DRY AND COMFORTABLE. PICKED UP VIA AMBULANCE IN A GURNEY ACCOMPANIED BY 2 EMT PERSONNEL IN STABLE CONDITION. DRESSINGS CLEAN DRY AND INTACT.
== END 2019-07-23 19:00 | disposition home or self-care (01) | DRG 853 ==
LOC: ER 19:38 → MED 22:15 → UNDODISIN 07-22 22:20
PROVIDERS: ADMIT Nurse Practitioner Acute Care; ATTEND Nurse Practitioner Acute Care
PROC: 0HR1X74 Replacement of Face Skin with Autologous Tissue Substitute, Partial Thickness, External Approach (ICD-10-PCS; principal; 2019-07-04)
PROC: 0JB73ZZ Excision of Back Subcutaneous Tissue and Fascia, Percutaneous Approach (ICD-10-PCS; principal; 2019-07-04)
PROC: 0HBJXZZ Excision of Left Upper Leg Skin, External Approach (ICD-10-PCS; 2019-07-05)
DX: A41.9 Sepsis, unspecified organism (principal); L89.153 Pressure ulcer of sacral region, stage 3; J15.6 Pneumonia due to other Gram-negative bacteria; E43 Unspecified severe protein-calorie malnutrition; G93.41 Metabolic encephalopathy; N17.0 Acute kidney failure with tubular necrosis; E87.0 Hyperosmolality and hypernatremia; N39.0 Urinary tract infection, site not specified; D68.69 Other thrombophilia; J98.11 Atelectasis; R64 Cachexia; A04.72 Enterocolitis due to Clostridium difficile, not specified as recurrent; N13.8 Other obstructive and reflux uropathy; Z68.1 Body mass index [BMI] 19.9 or less, adult; I12.9 Hypertensive chronic kidney disease with stage 1 through stage 4 chronic kidney disease, or unspecified chronic kidney disease; N18.9 Chronic kidney disease, unspecified; E86.0 Dehydration; C44.319 Basal cell carcinoma of skin of other parts of face; C44.519 Basal cell carcinoma of skin of other part of trunk; D63.8 Anemia in other chronic diseases classified elsewhere; E83.42 Hypomagnesemia; I25.10 Atherosclerotic heart disease of native coronary artery without angina pectoris; I11.0 Hypertensive heart disease with heart failure; F03.90 Unspecified dementia, unspecified severity, without behavioral disturbance, psychotic disturbance, mood disturbance, and anxiety; Z74.01 Bed confinement status; E88.09 Other disorders of plasma-protein metabolism, not elsewhere classified; N40.1 Benign prostatic hyperplasia with lower urinary tract symptoms; R62.7 Adult failure to thrive; D48.1 Neoplasm of uncertain behavior of connective and other soft tissue; E87.6 Hypokalemia; R53.1 Weakness; L90.5 Scar conditions and fibrosis of skin; M62.50 Muscle wasting and atrophy, not elsewhere classified, unspecified site; E86.9 Volume depletion, unspecified; Z22.322 Carrier or suspected carrier of Methicillin resistant Staphylococcus aureus; S61.217A Laceration without foreign body of left little finger without damage to nail, initial encounter; X58.XXXA Exposure to other specified factors, initial encounter; Y93.9 Activity, unspecified; Y92.009 Unspecified place in unspecified non-institutional (private) residence as the place of occurrence of the external cause
CPT/HCPCS: 36415; 71045-TC; 80048-TC; 80053-TC; 80076-TC; 81000-TC; 82570-TC; 82728-TC; 83540-TC; 83605-TC; 83735-TC; 84100-TC; 84153-TC; 84154-TC; 84155-TC; 84300-TC; 84443-TC; 84484-TC; 85025-TC; 85730-TC; 87040-TC; 87081-TC; 87086-TC; 88305-TC; 92521; 92526; 94799-TC; 97112-TC; 97530-TC; A4216; A6253; A6402; A6403; G0378; J0690; J0696; J1100; J2405; J2704; J3010; J3475; J3480; J3490; J7030; J7040; J7050; J7060; J7070